=== PATIENT | male | born 1970 | race Caucasian/White ===

== ENCOUNTER 2021-03-23 11:35 | Inpatient (IN) | payer BC, SELFPAY ==
[~2021-03-23] VITALS: Ht 177.8 cm; Wt 110.7 kg
[2021-03-23 12:00] VITALS: BP 111/50
[2021-03-23] MEDS ORDERED: ACET-2619 PO (12:26)
[2021-03-23] MEDS ORDERED: IBUP-2213 PO (12:26)
[2021-03-23] MEDS ORDERED: IBUPROFEN 800 MG TAB PO ONE (12:30)
--- NOTE | 2021-03-23 12:33 | NUR ---
PO MEDS GIVE, 02 NC AT 3L ON , EKG, LAB SENT TO TENT
--- NOTE | 2021-03-23 12:40 | NUR ---
BIB C/O SOB COVID + X 4 DAYS SAT 80% R/A, BODY PAIN 06/19, NC 3L ON BY NESSA GEORGE.PMH: DENIES
[2021-03-23 13:04] LABS: BASOPHILS % (AUTO) 0.3 % (0.0-2.0); HEMATOCRIT 44.3 % (36-52); HEMOGLOBIN 15.2 g/dL (12.0-18.0); LYMPHOCYTES # (AUTO) 0.5 K/uL (2.0-11.5); LYMPHOCYTES % (AUTO) 10.5 % (20.5-51.1); MEAN CORPUSCULAR HEMOGLOBIN 30 pg (27-31); MEAN CORPUSCULAR HGB CONC 34 g/dL (33-37); MEAN CORPUSCULAR VOLUME 88.2 fL (80-94); MONOCYTES # (AUTO) 0.2 K/uL (0.8-1.0); MONOCYTES % (AUTO) 3.9 % (1.7-9.3); NEUTROPHILS # (AUTO) 4.4 K/uL (1.8-7.7); NEUTROPHILS % (AUTO) 85.3 % (42.2-75.2); PLATELET COUNT (AUTO) 278 K/uL (140-450); RED BLOOD CELL COUNT(AUTO) 5.03 MIL/uL (4.20-6.10); RED CELL DISTRIBUTION WIDTH 13.4 % (11.6-13.7); WHITE BLOOD COUNT (AUTO) 5.2 K/uL (4.8-10.8)
[2021-03-23 13:26] LABS: ALBUMIN 2.5 g/dL (3.4-5.0); ANION GAP 20.2 (8-16); CARBON DIOXIDE 19.4 mmol/L (21-32); CREATININE 1.4 mg/dL (0.6-1.3); POTASSIUM 3.6 mmol/L (3.5-5.1); TOTAL BILIRUBIN 0.5 mg/dL (0.0-1.0)
--- NOTE | 2021-03-23 17:08 | NUR ---
PT PLACED INTO GOWN AND PUT ON BEHAVIORAL PSYCHOLOGIST
--- NOTE | 2021-03-23 17:08 | NUR ---
PT MOVED FROM TENT TO BED 10B
[2021-03-23] MEDS ORDERED: HYDROcodone/APAP 5/325 MG 1 TAB TAB PO PRN (17:25)
[2021-03-23] MEDS ORDERED: ONDANSETRON 4 MG/2 ML VIAL IVP PRN (17:25)
[2021-03-23] MEDS ORDERED: MAG SULF 2000 MG/WATER PREMIX 50 ML IV PRN (17:25)
[2021-03-23] MEDS ORDERED: POTASSIUM CHLORIDE 10 MEQ TABER PO PRN (17:25)
[2021-03-23] MEDS ORDERED: MAGNESIUM OXIDE 400 MG TAB PO PRN (17:25)
[2021-03-23] MEDS ORDERED: MORPHINE SULFATE 4 MG/ML SYR IVP PRN (17:25)
[2021-03-23] MEDS ORDERED: ZOLPIDEM 5 MG TAB PO PRN (17:25)
--- NOTE | 2021-03-23 17:29 | NUR ---
PT ADMITTED UNDER DR. ANN TO TELE. PT TELE HOLD IN BED 10A
[2021-03-23] MEDS ORDERED: AZITHROMYCIN 250 MG TAB PO SCH (18:00)
--- NOTE | 2021-03-23 18:06 | NUR ---
PT MOVED FROM 10A TO 10B
--- NOTE | 2021-03-23 18:14 | NUR ---
Patient appears to be resting comfortably in bed. Vital Signs within normal limits. Respirations even and unlabored.
[2021-03-23] MEDS ORDERED: cefTRIAXone 1,000 MG VIAL ONE (18:21)
[2021-03-23] MEDS: NACL 0.9% 1,000 ML IV SCH (18:24)
--- NOTE | 2021-03-23 19:38 | NUR ---
Pt report given to NESSA CASTORENA. Transfer of care at this time.
--- NOTE | 2021-03-23 19:52 | NUR ---
ASSISTED PATIENT TO THE COMMODE-- PATIENT TOLERATING WELL
--- NOTE | 2021-03-23 20:28 | NUR ---
SWITCHED PATIENT TO SIMPLE FACEMASK ON 10L-- TOLERATING WELL AND PATIENT PREFERS IT. WILL MONITOR PATIENT
--- NOTE | 2021-03-23 20:30 | NUR ---
patient tolerating face mask well saturation up to 93%
--- NOTE | 2021-03-23 20:54 | NUR ---
RT at bedside for patient
--- NOTE | 2021-03-23 22:33 | NUR ---
ASSISTED PATIENT TO THE COMMODE-- PATIENT TOLERATING WELL
--- NOTE | 2021-03-23 23:06 | NUR ---
patient non-compliant with face mask. patient repeatedly taking face mask off desaturating down to 55%. patient turning pale and lips looking slightly cyanotic. patient skin cool. Called RT.
[2021-03-24] VITALS (14 sets, daily range): BP systolic 94–133; BP diastolic 60–86
--- NOTE | 2021-03-24 02:41 | NUR ---
ASSISTED PATIENT TO THE COMMODE-- PATIENT TOLERATING WELL
--- NOTE | 2021-03-24 02:54 | NUR ---
RT at bedside for patient
[2021-03-24] MEDS: LORazepam 1 MG TAB PO PRN ×2 (03:04→09:34)
--- NOTE | 2021-03-24 03:57 | NUR ---
patient HR continuously at 125s, RR 45 and patient reports feeling exhausted and fatigued. patient starting to feel agitated even with medications for agitation.
--- NOTE | 2021-03-24 04:02 | NUR ---
Assisted patient to the commode-- patient increasingly becoming fatigued with increased WOB and desaturating to 85s.
[2021-03-24] MEDS: ACETAMINOPHEN 325 MG TAB PO PRN ×2 (04:10→17:37)
[2021-03-24] MEDS: NACL 0.9% 1,000 ML IV SCH ×3 (06:34→19:30)
--- NOTE | 2021-03-24 07:15 | NUR ---
Pt report given to Vicki SZYMANSKI. Transfer of care at this time.
--- NOTE | 2021-03-24 07:20 | NUR ---
REPORT RECEIVED FROM NESSA CASTORENA FOR TRANSFER OF CARE
--- NOTE | 2021-03-24 07:20 | NUR ---
Ivon dubose in [facility] - 03/24/21 at 4196 by ZORAN REPORT RECEIVED FROM NESSA CASTORENA FOR TRANSFER OF CARE
--- NOTE | 2021-03-24 08:12 | NUR ---
Patient will be admitted to care of DR. ANN. Admited to TELE. Will go to room 106B. Belongings list completed. Report to NESSA RIVERO. PT TAKEN VIA NATHAN WITH [facility] EMT
[2021-03-24] MEDS ORDERED: ENOXAPARIN 40 MG/0.4 ML SYR SUBQ SCH (09:00)
--- NOTE | 2021-03-24 09:00 | NUR ---
PATIENT HAS BEEN SCREENED AND CATEGORIZED MODERATE NUTRITION RISK. PATIENT WILL BE SEEN WITHIN 3-5 DAYS OF ADMISSION. [address] Addendum: 03/24/21 at [address] PATIENT HAS BEEN CATEGORIZED HIGH NUTRITION RISK D/T CONSULT RECEIVED FOR TUBE FEEDING. PATIENT WILL BE SEEN WITHIN 1-2 DAYS OF ADMISSION. 03/24/21-03/25/[address]
--- NOTE | 2021-03-24 09:02 | NUR ---
SPOKE TO DR. ANN, PT TO TRANSFER TO ICU. PT IS UNSTABLE ON BIPAP.
--- NOTE | 2021-03-24 09:05 | NUR ---
PT WAS TRANSFERRED FROM ER TO THE FLOORS. PLACED PATIENT ON BIPAP, PT IS SOMEWHAT STABLE SPO2 95-96% ON 100% FIO2. RR BETWEEN 35-40 BPM, PT SEEMS TO BE WORKING VERY AND COMPLAINS OF SOB WITH BIPAP ON. PT WAS TOLD TO LEAVE MASK BUT PT DOES REMOVE THE MASK AT TIMES. SATS STABLE OF NOW, WILL CONTINUE TO MONITOR.
[2021-03-24] MEDS: DOCUSATE SODIUM 100 MG GELCAP PO SCH (09:45)
[2021-03-24] MEDS ORDERED: DEXMEDETOMIDINE HCL 400 MCG in NACL 0.9% 96 ML IV PRN (09:55)
--- NOTE | 2021-03-24 10:15 | NUR ---
RECEIVED REPORT FROM JOSEFA SZYMANSKI VIA TELEPHONE FOR CONTINUITY OF CARE.
--- NOTE | 2021-03-24 10:30 | NUR ---
PT ARRIVED TO ICU BED 3. PT IS [id number]. PT IS SUPINE IN THE BED, ON BIPAP. LABORED BREATHING. PT IS ANXIOUS AND DISTRESSED REGARDING HIS INCREASED RESPIRATORY EFFORT. SINUS TACHY ON THE MONITOR. LFA IV 20G PATENT INTACT. PT IS CONTINENT OF BOWEL AND BLADDER. CALL LIGHT WITHIN REACH. SAFETY PRECAUTIONS MET. DROPLET PRECAUTIONS IN PLACE. INITIAL ASSESSMENT COMPLETED. WILL CONTINUE TO MONITOR.
--- NOTE | 2021-03-24 10:30 | NUR ---
TRANSFERED TO ICU BED 4. PATIENT RR 38-40, ANXIOUS, REMOVES MASK AND DESATS TO 86%. MEDICATED WITH ATIVAN ORDERED.
--- NOTE | 2021-03-24 10:38 | NUR ---
PT BREATHING IS LABORED, INCREASINGLY ANXIOUS. PT REQUESTED TO SPEAK TO DR REGARDING OPTIONS OTHER THAN BIPAP. CALLED ER DOCTOR LISSA.
--- NOTE | 2021-03-24 10:44 | NUR ---
ER DR ALCARAZ TALKED TO PATIENT ABOUT OPTIONS OTHER THAN BIPAP. PT EDUCATED ON OXYGENATION, BIPAP, AND INTUBATION. PT CONSENTED TO BE INTUBATED.
[2021-03-24] MEDS ORDERED: PROPOFOL 1000 MG/100 ML PREMIX 100 ML IV ONE (10:50)
--- NOTE | 2021-03-24 10:51 | NUR ---
PT RECEIVED 20MG OF ETOMIDATE FOLLOWED BY 100MG OF SUCCINYLCHOLINE PER DR ALCARAZ ORDER.
--- NOTE | 2021-03-24 10:52 | NUR ---
PT INTUBATED AT [address] ALCARAZ. ORDERED PROPOFOL TITRATION FOR SEDATION.
[2021-03-24] MEDS: PROPOFOL 1000 MG/100 ML PREMIX 100 ML IV PRN ×4 (11:00→21:10)
--- NOTE | 2021-03-24 11:02 | NUR ---
DC PLANNING: CM SPOKE WITH LUCI CM FOR [facility]. CLINICAL REVIEW GIVEN TO HER VERBALLY, ENDORSED THAT THE PATIENT IS ON A NRB AT 13 L, COVID RAPID NEGATIVE, PCR PENDING. O2 SATS ON RA 80% ON ADMISSION, PATIENT UNVACCINATED. CM WILL FOLLOW FOR NEEDS. Addendum: 03/24/21 at 1412 by Amarilis Norton RN DC PLANING: TRANSFERRED PATIENT TO ICU, INTUBATED SEDATED, ON FENTANYL AND PROPOFOL DRIP. CM TO FOLLOW Addendum: 03/31/21 at 1040 by Mayra Dubon CM DC PLANNING: CLINICAL REVIEW GIVEN TO JAIME AT [facility]. CM WILL FOLLOW. Addendum: 04/12/21 at 1416 by Mayra Dubon CM DC PLANNING: CM LEFT VM FOR THE PATIENTS POINT OF CONTACT, SUSANA VILLASENOR ASKING TO DISCUSS PLAN FOR THE PATIENTS CARE. PER LUCI AT [facility] THE ATTENDING MD STATES HE WILL WRITE AN ORDER FOR [facility] REFERRAL. PATIENT ON APRV VENT MODE AT 100% FIO2, PLAN TO ATTEMPT PRONING IF PATIENT CAN TOLERATE. CM WILL FOLLOW. Addendum: 04/12/21 at 1644 by Mayra Dubon DC PLANNING: CM SPOKE AT LENGTH WITH THE PATIENTS SUSANA TO DISCUSS [facility] TRANSFER. SUSANA IN AGREEMENT WITH TRANSFER, CM CONFIRMED WITH [facility] THAT THEY CAN TRANSPORT PATIENT ON APRV MODE AND 100% FIO2. PACKET FAXED TO STEPHANIE [facility] TRANSFER PUT ON HOLD FOR TODAY. CM WILL FOLLOW.
--- NOTE | 2021-03-24 11:20 | NUR ---
INSERTED NGT TO L NARE PER DR ROLLE ORDER.
--- NOTE | 2021-03-24 11:25 | NUR ---
XRAY AT BEDSIDE
[2021-03-24] MEDS ORDERED: NOREPINEPHRINE 4 MG in DEXTROSE 5% 250 ML IV PRN (11:40)
[2021-03-24] MEDS ORDERED: fentaNYL citrate 1 MG in NACL 0.9% 80 ML IV PRN (11:40)
--- NOTE | 2021-03-24 11:40 | NUR ---
SEEN AND EXAMINED BY DR ROLLE. ORDERS CARRIED OUT.
[2021-03-24] MEDS ORDERED: baricitinib COMM. ORDER 1 EA MISC MC PRN (11:45)
[2021-03-24] MEDS ORDERED: remdesivir COMMUNICATION ORDER 1 EA MISC MC PRN (11:45)
[2021-03-24] MEDS ORDERED: DEXTROSE 50% 50 ML SYR IVP PRN (11:45)
[2021-03-24] MEDS ORDERED: remdesivir CLINICAL MONITORING 1 EA MISC MC PRN (11:55)
[2021-03-24] MEDS: DEXAMETHASONE 10 MG/ML VIAL IVP SCH (12:00)
[2021-03-24 12:27] LABS: BASOPHILS % (AUTO) 0.1 % (0.0-2.0); HEMATOCRIT 40.1 % (36-52); HEMOGLOBIN 13.8 g/dL (12.0-18.0); LYMPHOCYTES # (AUTO) 0.4 K/uL (2.0-11.5); LYMPHOCYTES % (AUTO) 5.9 % (20.5-51.1); MEAN CORPUSCULAR HEMOGLOBIN 30 pg (27-31); MEAN CORPUSCULAR HGB CONC 34 g/dL (33-37); MEAN CORPUSCULAR VOLUME 88.6 fL (80-94); MONOCYTES # (AUTO) 0.2 K/uL (0.8-1.0); MONOCYTES % (AUTO) 3.7 % (1.7-9.3); NEUTROPHILS # (AUTO) 5.8 K/uL (1.8-7.7); NEUTROPHILS % (AUTO) 90.3 % (42.2-75.2); PLATELET COUNT (AUTO) 314 K/uL (140-450); RED BLOOD CELL COUNT(AUTO) 4.53 MIL/uL (4.20-6.10); RED CELL DISTRIBUTION WIDTH 13.7 % (11.6-13.7); WHITE BLOOD COUNT (AUTO) 6.4 K/uL (4.8-10.8)
[2021-03-24] MEDS: BLOOD GLUCOSE MONITORING 1 DEV DEV FS SCH ×2 (12:30→18:00)
[2021-03-24] MEDS: BARICITINIB 2 MG TAB PO SCH (12:30)
[2021-03-24] MEDS ORDERED: REMDESIVIR. 200 MG in NACL 0.9% 100 ML IV SCH (13:00)
[2021-03-24] MEDS: fentaNYL citrate - 50mL vial 2.5 MG in NACL 0.9% 200 ML IV PRN (13:35)
[2021-03-24] MEDS: INSULIN LISPRO SLIDING SCALE 100 UNITS/ML VIAL SUBQ PRN ×2 (13:45→19:18)
--- NOTE | 2021-03-24 14:03 | NUR ---
POTENTIAL COVID RELATED SKIN FAILURE DUE TO TISSUE LESS TOLERATE TO PRESSURE, SHEARING AND POSSIBLE ASSOCIATED WITH MICROVASCULAR INJURY AND HYPOXIA CONTINUE TO FOLLOW SKIN CARE AND PRESSURE INJURY PREVENTION INTERVENTIONS. -TURN AND REPOSITION PATIENT Q 2H -ASSESS AND MONITOR SKIN CONDITION DURING POSITION CHANGE -OFFLOAD BILATERAL HEELS BY PLACING PILLOWS UNDER CALVES AT ALL TIMES, UNLESS OTHERWISE CONTRAINDICATED -PRESSURE REDISTRIBUTION SURFACE AND OFFLOADING SACRALCOCCYX -KEEP SKIN CLEAN AND DRY AT ALL TIMES.
--- NOTE | 2021-03-24 14:15 | NUR ---
03/24/21 RD INITIAL ASSESSMENT COMPLETED PLEASE REFER TO NUTRITION ASSESSMENT UNDER CARE ACTIVITY FOR ESTIMATED NUTRITIONAL NEEDS. 1. RECOMMEND VITAL AF 1.2 @ 40 ML/HR -START AT 10 ML/HR AND INCREASE BY 10 ML Q4H TOLERATED -WITH PROPOFOL @ 31ML/HR, PT WILL RECEIVE 1970 KCAL AND 72 GM PROTEIN, MEETING ESTIMATED NUTRITIONAL GOALS 2. IF PROPOFOL RATE IS < 10 ML/HR, INCREASE THE GOAL RATE TO 60 ML/HR WITH FWF [address] TO FOLLOW-UP 2-3 DAYS, HIGH RISK GAYATHRI ARAYA RD
--- NOTE | 2021-03-24 15:00 | NUR ---
F/C INSERTED PER MD ORDER. DRAINING TO GRAVITY.
--- NOTE | 2021-03-24 18:30 | NUR ---
PT CLEANED AND REPOSITIONED, TOLERATED POORLY, SPO2 85%.
--- NOTE | 2021-03-24 19:05 | NUR ---
ENDORSED BEDSIDE REPORT TO SULY SZYMANSKI FOR CONTINUITY OF CARE.
--- NOTE | 2021-03-24 19:15 | NUR ---
ASSUMED CARE OF PT.INITIAL ASSESSMENT COMPLETED.PT SEDATED.SR NOTED ON MONITOR.PT ORALLY INTUBATED AC PC FIO2 100% RATE 22 PEEP 8.W/PERIPHERAL IV TO LT AC G20 INFUSING PROPOFOL DRIP 45MCG/KG/MIN DRY WT 106KG AND FENTANYL DRIP 1MCG/KG/HR , LT F/A G 20 INFUSING ORDERED IVF.W/NGT TO LT NARES INTACT.WILL START NGT FEEDING.ABDOMEN SOFT.W/ARMENTA CATHETER TO BSD DRAINING SMALL AMT OF YELLOW URINE.W/GENERALIZED WEAKNESS.W/BILATERAL SOFT WRIST RESTRAINTS ALSO NOTED; NO INJURIES NOTED.FLACC 0
--- NOTE | 2021-03-24 21:00 | NUR ---
PICC LINE TO GIL INSERTED BY SIVA SZYMANSKI; OK TO USE.
[2021-03-25] VITALS (27 sets, daily range): BP systolic 92–113; BP diastolic 58–69
[2021-03-25] MEDS: BLOOD GLUCOSE MONITORING 1 DEV DEV FS SCH ×4 (00:08→17:38)
[2021-03-25] MEDS: INSULIN LISPRO SLIDING SCALE 100 UNITS/ML VIAL SUBQ PRN ×2 (00:09→05:34)
--- NOTE | 2021-03-25 00:25 | NUR ---
02SAT 70'S; RT ROSALINA AND COCO AT BEDSIDE; ORDERED STAT ABG; PT ON 100% FIO2/VENT
--- NOTE | 2021-03-25 00:51 | NUR ---
ABG RESULT REPORTED TO DR ROLLE BY RT ROMANO
[2021-03-25] MEDS: PROPOFOL 1000 MG/100 ML PREMIX 100 ML IV PRN ×4 (01:35→22:44)
--- NOTE | 2021-03-25 02:00 | NUR ---
PROPOFOL AND FENTANYL DRIP CHANGED TO RASS -3 PER SARIAH; ABG ORDERED.RT AT BEDSIDE FLACC 0
[2021-03-25 05:19] LABS: BASOPHILS % (AUTO) 0.1 % (0.0-2.0); HEMATOCRIT 37.9 % (36-52); HEMOGLOBIN 12.6 g/dL (12.0-18.0); LYMPHOCYTES # (AUTO) 0.6 K/uL (2.0-11.5); MEAN CORPUSCULAR HEMOGLOBIN 30 pg (27-31); MEAN CORPUSCULAR HGB CONC 33 g/dL (33-37); MEAN CORPUSCULAR VOLUME 89.9 fL (80-94); MONOCYTES # (AUTO) 0.3 K/uL (0.8-1.0); MONOCYTES % (AUTO) 5.9 % (1.7-9.3); NEUTROPHILS # (AUTO) 3.7 K/uL (1.8-7.7); PLATELET COUNT (AUTO) 204 K/uL (140-450); RED BLOOD CELL COUNT(AUTO) 4.22 MIL/uL (4.20-6.10); RED CELL DISTRIBUTION WIDTH 13.5 % (11.6-13.7); WHITE BLOOD COUNT (AUTO) 4.6 K/uL (4.8-10.8)
--- NOTE | 2021-03-25 06:00 | NUR ---
PHONE CALL TO DR LAM, WATER TAXI DRIVER, NOTIFIED RE; TROPONIN 0.521; MD UPDATED ON PTS PRESENT CONDITION; QUESTIONS ANSWERED.NEW ORDERS RECEIVED.CARRIED OUT
[2021-03-25 06:07] LABS: ALBUMIN 1.8 g/dL (3.4-5.0); ANION GAP 16.8 (8-16); CARBON DIOXIDE 22.3 mmol/L (21-32); CREATININE 1.5 mg/dL (0.6-1.3); POTASSIUM 4.1 mmol/L (3.5-5.1); TOTAL BILIRUBIN 0.3 mg/dL (0.0-1.0)
[2021-03-25] MEDS ORDERED: ENOXAPARIN 120 MG/0.8 ML SYR SUBQ SCH (07:00)
--- NOTE | 2021-03-25 07:30 | NUR ---
RECEIVED REPORT FROM ROCÍO FOR CONTINUE CARE PT IS IN ISOLATION . IN BED ETT UP 30 DEGREE ETT TO VENT AC PRVC 100% FIO2 TV 500 PEEP 12 , IV HAS PICC LINE ONRT UPPER ARM. INFUSING PROPOFOL AT 35MCG/KG/MIN FENTANYL1 MCG/KG/HR IV FLUID NS AT 80 ML/HR.NG T FEEDING IN PROGRESS, ARMENTA CATH DRAIN CLEAR BRIANNA URINE.
--- NOTE | 2021-03-25 08:45 | NUR ---
REPOSITION SUCTION AND ORAL CARE WITH VAP KIT , SCHEDULE MED GIVEN.
[2021-03-25] MEDS ORDERED: LOVENOX 1MG/KG Q12H SUBQ SCH (09:00)
[2021-03-25] MEDS: PANTOPRAZOLE 40 MG INJ VIAL IVP SCH (09:15)
[2021-03-25] MEDS: DEXAMETHASONE 10 MG/ML VIAL IVP SCH (09:15)
[2021-03-25] MEDS: DOCUSATE SODIUM 100 MG GELCAP PO SCH (09:18)
[2021-03-25] MEDS: BARICITINIB 2 MG TAB PO SCH (09:21)
--- NOTE | 2021-03-25 10:08 | NUR ---
DIGITAL TECHNICIAN CALLED TO BEDSIDE PATIENT PRESENTING WITH DESCENDING SATURATION AND CHANGING Vte CHANGED MODE TO PRVC; INCREASED Vt (FLOW) TO 550ml (GREATER THAN 7ml/kg)
[2021-03-25] MEDS: REMDESIVIR. 100 MG in NACL 0.9% 100 ML IV SCH (13:00)
--- NOTE | 2021-03-25 14:20 | NUR ---
STABLE GOOD CHEST RISE ENDOTRACHEAL SUCTION FOR SMALL THIN YELLOW SECRETIONS AIRWAY PATENT DR. MJ HERNÁNDEZ ROUNDING EARLIER CHANGED PEEP TO [id number] PER NAHEED/RN
--- NOTE | 2021-03-25 14:20 | NUR ---
PATIENT PLACED IN PRONE POSITION TOLERATED WELL WITHOUT COMPLICATIONS NOTED
--- NOTE | 2021-03-25 19:05 | NUR ---
REPORT GIVE TO SULY FOR CONTINUE CARE.
--- NOTE | 2021-03-25 19:30 | NUR ---
ASSUMED CARE OF PT.INITIAL ASSESSMENT COMPLETED.PT SEDATED.RASS -3.SR NOTED ON MONITOR.PT ORALLY INTUBATED AC PRVC FIO2 100% TV 550 RATE 22 PEEP 14.W/GIL PICC LINE FLUSHED,INTACT,GOOD BLOOD RETURN TO BOTH PORTS,INFUSING PROPOFOL DRIP 35MCG/KG/MIN DRY WT 106KG AND FENTANYL DRIP 1.5 MCG/KG/HR AND NS AT 80ML/HR.W/NGT TO LT NARES INTACT.TUBE FEEDING ON HOLD FOR NOW.W/ARMENTA CATHETER TO BSD DRAINING SMALL AMT OF YELLOW URINE.W/GENERALIZED WEAKNESS.W/BILATERAL SOFT WRIST RESTRAINTS ALSO NOTED; NO INJURIES NOTED.FLACC 0.PT ON PRONE POSITION AT THIS TIME.
--- NOTE | 2021-03-25 22:13 | NUR ---
PT STILL ON PRONE POSITION.NO DISTRESS NOTED AT THIS TIME.WILL CONTINUE TO CLOSELY MONITOR PT
[2021-03-25] MEDS: NACL 0.9% 1,000 ML IV SCH (22:43)
[2021-03-26] VITALS (24 sets, daily range): BP systolic 100–134; BP diastolic 61–79
--- NOTE | 2021-03-26 02:30 | NUR ---
PTS POSITION CHANGED FROM PRONE TO SUPINE; RT AT BEDSIDE.SECRETIONS SUCTIONED.[id number]% AT THIS TIME. NGT FEEDING VITAL AF RESUMED ORDERED.FLACC 0
[2021-03-26] MEDS: PROPOFOL 1000 MG/100 ML PREMIX 100 ML IV PRN ×5 (02:45→19:30)
--- NOTE | 2021-03-26 02:45 | NUR ---
BM LARGE AMT OF DARK GREENISH LIQUID STOOL NOTED; PT CLEANED; PT REPOSITIONED; LARGE LIQUID BM NOTED AGAIN; RECTAL TUBE INSERTED ORDERED
--- NOTE | 2021-03-26 04:00 | NUR ---
ORAL CARE DONE.AFEBRILE.FLACC 0.REPOSITIONED
[2021-03-26] MEDS: fentaNYL citrate - 50mL vial 2.5 MG in NACL 0.9% 200 ML IV PRN ×2 (04:30→20:19)
[2021-03-26 05:24] LABS: BASOPHILS % (AUTO) 0.1 % (0.0-2.0); HEMATOCRIT 37.5 % (36-52); HEMOGLOBIN 12.7 g/dL (12.0-18.0); LYMPHOCYTES # (AUTO) 0.7 K/uL (2.0-11.5); LYMPHOCYTES % (AUTO) 9.6 % (20.5-51.1); MEAN CORPUSCULAR HEMOGLOBIN 30 pg (27-31); MEAN CORPUSCULAR HGB CONC 34 g/dL (33-37); MEAN CORPUSCULAR VOLUME 89.9 fL (80-94); MONOCYTES # (AUTO) 0.6 K/uL (0.8-1.0); MONOCYTES % (AUTO) 7.9 % (1.7-9.3); NEUTROPHILS % (AUTO) 82.4 % (42.2-75.2); PLATELET COUNT (AUTO) 222 K/uL (140-450); RED BLOOD CELL COUNT(AUTO) 4.17 MIL/uL (4.20-6.10); RED CELL DISTRIBUTION WIDTH 13.9 % (11.6-13.7); WHITE BLOOD COUNT (AUTO) 7.3 K/uL (4.8-10.8)
[2021-03-26 05:53] LABS: ALBUMIN 1.8 g/dL (3.4-5.0); ANION GAP 13.6 (8-16); CARBON DIOXIDE 24.7 mmol/L (21-32); CREATININE 1.2 mg/dL (0.6-1.3); POTASSIUM 4.3 mmol/L (3.5-5.1); TOTAL BILIRUBIN 0.2 mg/dL (0.0-1.0)
[2021-03-26] MEDS: BLOOD GLUCOSE MONITORING 1 DEV DEV FS SCH ×5 (05:54→23:54)
[2021-03-26] MEDS: INSULIN LISPRO SLIDING SCALE 100 UNITS/ML VIAL SUBQ PRN ×5 (05:55→23:55)
--- NOTE | 2021-03-26 07:05 | NUR ---
RECEIVED BEDSIDE REPORT FROM SULY SZYMANSKI FOR CONTINUITY OF CARE. PT SEDATED, RASS -3. SR ON MONITOR. ETT TO VENT AC PRVC FIO2 100% TV 550 RATE 22 PEEP 14. GIL PICC LINE PATENT INTACT, INFUSING PROPOFOL 35MCG/KG/MIN, FENTANYL 1.5 MCG/KG/HR AND NS AT 80ML/HR. NGT TO L NARE INTACT TUBE FEEDING VITAL AF 1.2 40 ML/HR FREE WATER FLUSH 200CC Q4H. F/C IN PLACE, DRAINING TO GRAVITY. RECTAL TUBE IN PLACE, DRAINING TO GRAVITY. GENERALIZED WEAKNESS. BILATERAL SOFT WRIST RESTRAINTS, NO INJURIES NOTED. FLACC 0. PT ON SUPINE POSITION AT THIS TIME. SKIN INTACT. ALL SAFETY PRECAUTIONS MET. DROPLET PRECAUTIONS IN PLACE FOR DX COVID POS. CALL LIGHT WITHIN REACH. INITIAL ASSESSMENT COMPLETED, WILL CONTINUE TO MONITOR.
[2021-03-26] MEDS: NACL 0.9% 1,000 ML IV SCH ×2 (07:55→20:28)
[2021-03-26] MEDS: DEXAMETHASONE 10 MG/ML VIAL IVP SCH (08:50)
[2021-03-26] MEDS: PANTOPRAZOLE 40 MG INJ VIAL IVP SCH (08:50)
[2021-03-26] MEDS: DOCUSATE 100 MG/10 ML UDC GT SCH (08:50)
[2021-03-26] MEDS: BARICITINIB 2 MG TAB PO SCH (08:50)
[2021-03-26] MEDS: ENOXAPARIN 40 MG/0.4 ML SYR SUBQ SCH (08:51)
--- NOTE | 2021-03-26 11:30 | NUR ---
SEEN AND EXAMINED BY DR DOE. NO NEW ORDERS AT THIS TIME. WILL CONTINUE TO MONITOR.
--- NOTE | 2021-03-26 11:58 | NUR ---
(03/26/21) RD FOLLOW UP COMPLETED PLEASE REFER TO NUTRITION PROGRESS NOTE UNDER CARE ACTIVITY FOR ESTIMATED NUTRITION NEEDS. RD RECOMMENDATIONS: 1. RECOMMEND D/C VITAL AF 1.2. 2. RECOMMEND INITIATING GLUCERN 1.2 AT 60 ML/HR. THIS WILL PROVIDE 1440 ML TOTAL VOLUME, 1728 KCAL, AND 86 GM PROTEIN TO MEET 92% EST KCAL NEEDS AND 76% UPPER-END EST PROTEIN NEEDS. 3. IF GLUCERNA 1.2 IS NOT INITIATED, CONSIDER INCREASING GOAL RATE OF VITAL AF 1.2 TO 55 ML/HR TO PROVIDE 1320 ML TOTAL VOLUME, 1584 KCAL, 99 GM PROTEIN TO MEET 84% EST KCAL NEEDS AND 88% EST PROTEIN NEEDS; ADEQUATE. 4. RD TO FOLLOW-UP 2-3 DAYS, HIGH RISK MARSHA PERDOMO MS, RDN
--- NOTE | 2021-03-26 12:00 | NUR ---
BSG 266, COVERED WITH 6 UNITS OF HUMALOG. WILL CONTINUE TO MONITOR.
[2021-03-26] MEDS: REMDESIVIR. 100 MG in NACL 0.9% 100 ML IV SCH (12:13)
--- NOTE | 2021-03-26 14:00 | NUR ---
AT BEDSIDE, UPDATED REGARDING PATIENT'S CONDITION.
--- NOTE | 2021-03-26 14:45 | NUR ---
PT REPOSITIONED TO PRONE POSITION WITH ASSIST FROM VANNESA GASPAR AND MARILEE SZYMANSKI. TUBE FEEDING HELD WHILE PRONE.
--- NOTE | 2021-03-26 18:00 | NUR ---
BSG 214, COVERED WITH 4 UNITS OF HUMALOG. WILL CONTINUE TO MONITOR.
--- NOTE | 2021-03-26 19:00 | NUR ---
SEEN AND EXAMINED BY DR ANN. NO NEW ORDERS AT THIS TIME.
--- NOTE | 2021-03-26 19:30 | NUR ---
ENDORSED BEDSIDE REPORT TO SULY SZYMANSKI FOR CONTINUITY OF CARE.
--- NOTE | 2021-03-26 19:50 | NUR ---
RECEIVED PT ON PRONE POSITION.INITIAL ASSESSMENT COMPLETED.PT SEDATED.RASS -3.SR NOTED ON MONITOR.ETT TO VENT AC PRVC FIO2 80% TV 550 RATE 22 PEEP 14.W/GIL PICC LINE FLUSHED,INTACT,GOOD BLOOD RETURN TO BOTH PORTS,INFUSING PROPOFOL DRIP 35MCG/KG/MIN DRY WT 106KG AND FENTANYL DRIP 1.5 MCG/KG/HR AND NS AT 80ML/HR.W/NGT TO LT NARES INTACT,CLAMPED,TUBE FEEDING ON HOLD FOR NOW.W/ARMENTA CATHETER TO BSD DRAINING SMALL AMT OF YELLOW URINE.W/RECTAL TUBE ALREADY IN PLACE.W/GENERALIZED WEAKNESS.W/BILATERAL SOFT WRIST RESTRAINTS ALSO NOTED; NO INJURIES NOTED.FLACC 0.
--- NOTE | 2021-03-26 22:00 | NUR ---
PT STILL ON PRONE POSITION.NOT IN DISTRESS.FLACC 0
[2021-03-27] VITALS (30 sets, daily range): BP systolic 96–151; BP diastolic 62–94
--- NOTE | 2021-03-27 | NUR ---
ORAL CARE DONE WITH VAP KIT.
--- NOTE | 2021-03-27 | NUR ---
PTS CONDITION REMAINS UNCHANGED.STILL ON PRONE POSITION.NO DISTRESS NOTED
[2021-03-27] MEDS: PROPOFOL 1000 MG/100 ML PREMIX 100 ML IV PRN ×6 (00:28→21:22)
--- NOTE | 2021-03-27 03:00 | NUR ---
PT REPOSITIONED BACK TO SUPINE POSITION FROM PRONE.RT AT BEDSIDE. NGT FEEDING RESTARTED, GLUCERNA 1.2 ORDERED
--- NOTE | 2021-03-27 05:00 | NUR ---
PT O2 SAT GOING DOWN, RT AT BEDSIDE.CXR ORDERED
[2021-03-27 05:56] LABS: BASOPHILS % (AUTO) 0.1 % (0.0-2.0); HEMATOCRIT 38.9 % (36-52); LYMPHOCYTES # (AUTO) 0.8 K/uL (2.0-11.5); MEAN CORPUSCULAR HEMOGLOBIN 30 pg (27-31); MEAN CORPUSCULAR HGB CONC 33 g/dL (33-37); MONOCYTES # (AUTO) 0.7 K/uL (0.8-1.0); MONOCYTES % (AUTO) 5.7 % (1.7-9.3); NEUTROPHILS # (AUTO) 10.4 K/uL (1.8-7.7); PLATELET COUNT (AUTO) 170 K/uL (140-450); RED BLOOD CELL COUNT(AUTO) 4.32 MIL/uL (4.20-6.10); RED CELL DISTRIBUTION WIDTH 14.1 % (11.6-13.7); WHITE BLOOD COUNT (AUTO) 11.9 K/uL (4.8-10.8)
[2021-03-27] MEDS: BLOOD GLUCOSE MONITORING 1 DEV DEV FS SCH ×3 (06:00→17:29)
--- NOTE | 2021-03-27 06:32 | NUR ---
02SAT 95 % AT THIS TIME; PT ON FIO2 85% AC PRVC TV550 RATE 22 PEEP 14.WILL CONTINUE TO CLOSELY MONITOR PT.
[2021-03-27 07:07] LABS: LYMPHOCYTES % (AUTO) 6.6 % (20.5-51.1); NEUTROPHILS % (AUTO) 87.6 % (42.2-75.2)
[2021-03-27 07:08] LABS: ALBUMIN 1.8 g/dL (3.4-5.0); ANION GAP 17.4 (8-16); CARBON DIOXIDE 22.8 mmol/L (21-32); POTASSIUM 4.2 mmol/L (3.5-5.1); TOTAL BILIRUBIN 0.3 mg/dL (0.0-1.0)
--- NOTE | 2021-03-27 07:10 | NUR ---
RECEIVED BEDSIDE REPORT FROM SULY SZYMANSKI FOR CONTINUITY OF CARE. PT SEDATED, RASS -3. SR ON MONITOR. ETT TO VENT AC PRVC FIO2 100% TV 550 RATE 22 PEEP 14. GIL PICC LINE PATENT INTACT, INFUSING PROPOFOL 35MCG/KG/MIN, FENTANYL 1.5 MCG/KG/HR AND NS AT 80ML/HR. NGT TO L NARE INTACT TUBE FEEDING GLUCERNA 40 ML/HR FREE WATER FLUSH 200CC Q4H. F/C IN PLACE, DRAINING TO GRAVITY. RECTAL TUBE IN PLACE, DRAINING TO GRAVITY. GENERALIZED WEAKNESS. BILATERAL SOFT WRIST RESTRAINTS, NO INJURIES NOTED. FLACC 0. PT ON SUPINE POSITION AT THIS TIME. SKIN INTACT. ALL SAFETY PRECAUTIONS MET. DROPLET PRECAUTIONS IN PLACE FOR DX COVID POS. CALL LIGHT WITHIN REACH. INITIAL ASSESSMENT COMPLETED, WILL CONTINUE TO MONITOR.
--- NOTE | 2021-03-27 07:23 | NUR ---
RECEIVED ON A baseclick R860 VENTILATOR PLUGGED INTO RED OUTLET TOLERATING WELL WITHOUT ADVERSE REACTIONS NOTED TO AN ENDOTRACHEAL TUBE #8.0 SECURED AT 25cm TEETH/GUM LINE WITH BLUE ETT TAPE AMBU BAG AT BEDSIDE MEDICAL DEVICE SALES CONSULTANT CALLED TO BEDSIDE FOR DESCENDING SATURATION TO 83%-85% REVIEWED B/P 142/88 NO VASOPRESSOR INFUSING VIA IV PER ARDS PROTOCOL INCREASED PEEP TO [id number] CHECKED PROBE SITE MOVED FOR LEFT TO RIGHT EAR MEDICAL DEVICE SALES CONSULTANT TO ORDER AND OBTAIN ABG KINGS AWARE OF INCREASE IN PEEP Addendum: 03/27/21 at 1036 by Miles Camarillo RT LOC IRRITABLE PHYSICAL MOVEMENT SEDATED PROPOFOL 40mcg; FENTANYL 1.5mcg REVIEWED WITH ALETA INCREASED TO 40mcg; ENDOTRACHEAL SUCTION FOR MODERATE RUBEN THICK PALE YELLOW WITH BLOOD TINGE SECRETIONS AIRWAY PATENT
--- NOTE | 2021-03-27 08:00 | NUR ---
TEMPERATURE 101.5 F MEDICATED WITH TYLENOL PER MD ORDER. COOLING MEASURES IN PLACE. WILL CONTINUE TO MONITOR.
--- NOTE | 2021-03-27 08:45 | NUR ---
SEEN AND EXAMINED BY DR DOE. NEW ORDERS CARRIED OUT. WILL CONTINUE TO MONITOR.
[2021-03-27] MEDS: NACL 0.9% 1,000 ML IV SCH ×2 (08:55→10:00)
--- NOTE | 2021-03-27 08:55 | NUR ---
REVIEWED PULMONARY STATUS WITH DR. SARAH BRYANT: DUONEB HHN Q6 QND Q4PRN FOR SOB AND WHEEZE; SPUTUM CULTURE IF NOT COLLECTED RECENTLY
--- NOTE | 2021-03-27 09:10 | NUR ---
RESTING WELL GOOD CHEST RISE AIRWAY PATENT
--- NOTE | 2021-03-27 09:12 | NUR ---
ABG PROCEDURE COMPLETED RIGHT RADIAL NO ADVERSE REACTIONS NOTED
[2021-03-27] MEDS: DEXAMETHASONE 10 MG/ML VIAL IVP SCH (09:15)
[2021-03-27] MEDS: DOCUSATE 100 MG/10 ML UDC GT SCH (09:15)
[2021-03-27] MEDS: BARICITINIB 2 MG TAB PO SCH (09:15)
[2021-03-27] MEDS: PANTOPRAZOLE 40 MG INJ VIAL IVP SCH (09:15)
[2021-03-27] MEDS: ENOXAPARIN 40 MG/0.4 ML SYR SUBQ SCH (09:18)
[2021-03-27] MEDS: ACETAMINOPHEN 325 MG TAB PO PRN ×2 (09:19→23:04)
--- NOTE | 2021-03-27 09:19 | NUR ---
DR. SARAH DOE AWARE OF ABG RESULTS
--- NOTE | 2021-03-27 09:35 | NUR ---
DR. SARAH DOE AT BEDSIDE CHANGED VENTILATOR SETTINGS: APRV P high [id number] P low OFF; T high 7.00 T low 0.50 SATURATION 85%; ABG AFTER 1 HOUR
--- NOTE | 2021-03-27 09:35 | NUR ---
DR DOE AT BEDSIDE, CHANGED VENT SETTINGS TO APRV FIO2 85%. COMMUNICATED WITH RT. NEW ORDERS CARRIED OUT. WILL CONTINUE TO MONITOR.
--- NOTE | 2021-03-27 10:00 | NUR ---
TEMPERATURE 101.2 F. COOLING MEASURES STILL IN PLACE. WILL CONTINUE TO MONITOR.
[2021-03-27] MEDS ORDERED: ALBUTEROL SULFATE/IPRATROPIU 3 ML SOL IH PRN (10:10)
--- NOTE | 2021-03-27 10:44 | NUR ---
TOLERATING NEW VENTILATOR SETTINGS EQUAL CHEST RISE AIRWAY PATENT NOTED
--- NOTE | 2021-03-27 10:50 | NUR ---
ABG PROCEDURE COMPLETED NO ADVERSE REACTIONS NOTED
--- NOTE | 2021-03-27 11:02 | NUR ---
CALLED DR. SARAH DOE AT [facility] [phone] MARS/MOHSEN TO SAMANTHA FUNGD RETURN PHONE NUMBER AND PATIENT INFORMATION GIVEN
--- NOTE | 2021-03-27 11:05 | NUR ---
RETURN CALL FROM DR. SARAH DOE REVIEWED ABG SAMPLE REPORT AND VENTILATOR SETTINGS STATES "THAT'S FINE" TORBO: ABG IN AM 03/28 AT 0808; RN TO TITRATE SEDATION CONTINUOUS IMPROVEMENT ENGINEER TO INFORM VICK/NESSA
--- NOTE | 2021-03-27 11:23 | NUR ---
INFORMED VICK/RN OF DR. SARAH JOSE OF TITRATING SEDATION
--- NOTE | 2021-03-27 11:30 | NUR ---
SPOKE ON TELEPHONE WITH DR DOE REGARDING PT'S CONDITION. ORDERED TO HOLD PRONING FOR TODAY AND WILL REASSESS TOMORROW. ORDERS CARRIED OUT.
[2021-03-27] MEDS: fentaNYL citrate - 50mL vial 2.5 MG in NACL 0.9% 200 ML IV PRN (12:00)
--- NOTE | 2021-03-27 12:00 | NUR ---
TEMPERATURE NOW 98.7 F. WILL CONTINUE TO MONITOR.
[2021-03-27] MEDS: REMDESIVIR. 100 MG in NACL 0.9% 100 ML IV SCH (12:35)
[2021-03-27] MEDS: INSULIN LISPRO SLIDING SCALE 100 UNITS/ML VIAL SUBQ PRN ×2 (12:37→17:30)
[2021-03-27] MEDS: ALBUTEROL SULFATE/IPRATROPIU 3 ML SOL IH SCH ×2 (13:27→19:00)
--- NOTE | 2021-03-27 13:28 | NUR ---
SEDATED RESTING COMFORTABLY EQUAL CHEST RISE AIRWAY PATENT APRV P high [id number] P low OFF; T high 7.00 T low 0.50 FIO2 85%
--- NOTE | 2021-03-27 14:00 | NUR ---
PT SEDATED IN THE BED, RASS -3, FLACC 0, NO ACUTE DISTRESS. WILL CONTINUE TO MONITOR.
--- NOTE | 2021-03-27 16:00 | NUR ---
PT'S OUTSIDE PT'S ROOM, UPDATED REGARDING PT CONDITION. PAGED RT TO EXPLAIN VENT SETTINGS AND RESPIRATORY STATUS.
--- NOTE | 2021-03-27 19:15 | NUR ---
ENDORSED BEDSIDE REPORT TO ABIODUN RN FOR CONTINUITY OF CARE.
--- NOTE | 2021-03-27 19:30 | NUR ---
RECEIVED PATIENT ON BED WITH HOB TO 30 DEGREE; SEDATED RASS-3 WITH CONTINOUS PROPOFOL AND FENTANYL DRIP; ORALLY INTUBATED AND VENTILATED AT 85% FIO2, ON APRV MODE OF VENTILATION. CARDIASCOPE SHOWS ON SINUS TACHY HR 103/MIN NO ARRHYTHMIAS SEEN. IVF IN PROGRESS NORMAL SALINE AT 80 ML/HR VIA PICC LINE ON RIGHT UPPER ARM; INTACT. ABDOMEN IS SOFT AND OBESE; ACTIVE BOWEL SOUNDS. ON CONTINOUS TUBE FEEDING VITAL AF 40 ML/HR VIA OGT; TOLERATED WITH MINIMAL RESIDUAL. WITH ARMENTA CATH IN PLACE TO GRAVITY DRAINAGE BAG DRAINING TO CLOUDY YELLOW URINE OUTPUT; INTACT. WITH RECTAL TUBE IN PLACE DRAINING TO MODERATE AMOUNT OF WATERY BROWN STOOL.
--- NOTE | 2021-03-27 21:30 | NUR ---
FEBRILE 101.2; COOLING MEASURES DONE AND TYLENOL GIVEN.
[2021-03-28] VITALS (30 sets, daily range): BP systolic 109–167; BP diastolic 58–100
[2021-03-28] MEDS: INSULIN LISPRO SLIDING SCALE 100 UNITS/ML VIAL SUBQ PRN ×4 (00:15→18:20)
[2021-03-28 01:42] LABS: APPEARANCE,URINE SL CLOUDY (CLEAR); BILIRUBIN,URINE NEGATIVE (NEGATIVE); BLOOD, URINE 1+ (NEGATIVE); COLOR,URINE YELLOW (YELLOW); LEUKOCYTE ESTERASE ,URINE NEGATIVE (NEGATIVE); NITRITE, URINE NEGATIVE (NEGATIVE); UGLUCOSE TRACE (NEGATIVE)
[2021-03-28] MEDS: ALBUTEROL SULFATE/IPRATROPIU 3 ML SOL IH SCH ×2 (02:42→19:08)
[2021-03-28] MEDS: PROPOFOL 1000 MG/100 ML PREMIX 100 ML IV PRN (02:48)
--- NOTE | 2021-03-28 03:30 | NUR ---
MORNING BED BATH DONE; KEPT CLEAN DRY AND COMFORTABLE.
[2021-03-28] MEDS: fentaNYL citrate - 50mL vial 2.5 MG in NACL 0.9% 200 ML IV PRN ×2 (04:20→20:07)
[2021-03-28 04:26] LABS: WBC,URINE 0-5 /HPF (0-5)
[2021-03-28] MEDS: NACL 0.9% 1,000 ML IV SCH (04:30)
[2021-03-28 05:40] LABS: BASOPHILS % (AUTO) 0.2 % (0.0-2.0); HEMATOCRIT 38.3 % (36-52); HEMOGLOBIN 12.7 g/dL (12.0-18.0); LYMPHOCYTES # (AUTO) 0.7 K/uL (2.0-11.5); LYMPHOCYTES % (AUTO) 6.5 % (20.5-51.1); MEAN CORPUSCULAR HEMOGLOBIN 30 pg (27-31); MEAN CORPUSCULAR HGB CONC 33 g/dL (33-37); MEAN CORPUSCULAR VOLUME 90.6 fL (80-94); MONOCYTES # (AUTO) 0.5 K/uL (0.8-1.0); MONOCYTES % (AUTO) 4.8 % (1.7-9.3); NEUTROPHILS # (AUTO) 9.9 K/uL (1.8-7.7); NEUTROPHILS % (AUTO) 88.5 % (42.2-75.2); PLATELET COUNT (AUTO) 141 K/uL (140-450); RED BLOOD CELL COUNT(AUTO) 4.23 MIL/uL (4.20-6.10); RED CELL DISTRIBUTION WIDTH 14.1 % (11.6-13.7); WHITE BLOOD COUNT (AUTO) 11.2 K/uL (4.8-10.8)
[2021-03-28] MEDS: BLOOD GLUCOSE MONITORING 1 DEV DEV FS SCH ×4 (06:50→18:20)
--- NOTE | 2021-03-28 07:20 | NUR ---
ENDORSED TO AM SHIFT NESSA RODRIGUEZ FOR CONTINUITY OF CARE.
--- NOTE | 2021-03-28 07:30 | NUR ---
RECEIVED REPORT FROM NIGHT RN. PATIENT SEDATED AND RESTING COMFORTABLY.
[2021-03-28 07:48] LABS: ALBUMIN 1.8 g/dL (3.4-5.0); CARBON DIOXIDE 26.8 mmol/L (21-32); POTASSIUM 4.8 mmol/L (3.5-5.1); TOTAL BILIRUBIN 0.3 mg/dL (0.0-1.0)
--- NOTE | 2021-03-28 07:58 | NUR ---
RECEIVED ON A NicheSCAPE R860 VENTILATOR WITH SETTINGS OF Ph [id number] Pl OFF Th 0.70 Tl 0.50 FIO2 85% PLUGGED ONTO RED OUTLET TOLERATING WITHOUT ADVERSE REACTIONS TO AN ENDOTRACHEAL TUBE #8.0 SECURED AT 25cm TEETH/GUM LINE WITH AN ANCHOR FAST CUFF PRESSURE CHECKED NOTED AMBU BAG AT BEDSIDE LOC SEDATED RESPONSIVE TO PHYSICAL STIMULUS EQUAL CHEST RISE ENDOTRACHEAL SUCTION FOR COPIOUS SEMI THICK YELLOW WITH BLOOD TINGE SECRETIONS AIRWAY PATENT
--- NOTE | 2021-03-28 08:30 | NUR ---
PATIENT SEDATED. PROPOFOL AT 30MCG/KG/MIN, FENTANYL 1.5MCH/KG/HR, NS 80ML/HR. RIGHT PICC LINE. PUPILS EQUAL AND REACTIVE. PERIPHERAL PULSES PALPABLE AND STRONG. BILAT UPPER ARMS EDEMATOUS. LEFT EYE EDEMATOUS. HEART SOUNDS REGULAR. SINUS TACHYCARDIA. ANTERIOR/LATERAL LUNG SOUNDS CLEAR DIMINISHED. ETT IN PLACE ON VENT APRV MODE WITH FIO2 AT 85% SAO2 100%. NGT IN PLACE WITH GLUCERNA AT 40CC/HR. ABDOMEN SOFT WITH BOWEL SOUNDS IN ALL QUADRANTS. RECTAL BAG IN PLACE WITH LIQUID BROWN STOOL. ARMENTA IN PLACE WITH DARK BRIANNA URINE.
[2021-03-28] MEDS: PANTOPRAZOLE 40 MG INJ VIAL IVP SCH (08:38)
[2021-03-28] MEDS: DOCUSATE 100 MG/10 ML UDC GT SCH (08:38)
[2021-03-28] MEDS: DEXAMETHASONE 10 MG/ML VIAL IVP SCH (08:38)
--- NOTE | 2021-03-28 09:10 | NUR ---
CALLED DR. SARAH DOE AT [facility] [phone] SANTI TO SAMANTHA DIAZ MD FOR REVIEW OF ABG SAMPLE REPORT PATIENT INFO AND RETURN PHONE NUMBER [email or web address]
--- NOTE | 2021-03-28 09:16 | NUR ---
CALL BACK FROM DR. SARAH DOE REVIEWED ABG SAMPLE REPORT FOREMENTIONED MD STATED THAT PH AND PCO2 IS ACCEPTABLE "PERMISSIVE HYPERCAPNIA" MD TO MAKE OTHER VENTILATOR CHANGES DURING ROUNDS TORBO: WEAN FIO2 TO KEEP SATURATION GREATER 88%
[2021-03-28] MEDS: BARICITINIB 2 MG TAB PO SCH (09:21)
[2021-03-28] MEDS: ENOXAPARIN 40 MG/0.4 ML SYR SUBQ SCH (09:21)
--- NOTE | 2021-03-28 10:00 | NUR ---
FIO2 WEANED TO 75% AND PROPOFOL TO 25MCG.
--- NOTE | 2021-03-28 10:00 | NUR ---
PT. WITH LOW KEN SCALE AT HIGH RISK, CONTINUE TO FOLLOW PRESSURE INJURY PREVENTION INTERVENTIONS. -TURN AND REPOSITION PATIENT Q 2H -ASSESS AND MONITOR SKIN CONDITION DURING POSITION CHANGE -OFFLOAD BILATERAL HEELS BY PLACING PILLOWS UNDER CALVES AT ALL TIMES, UNLESS OTHERWISE CONTRAINDICATED -PRESSURE REDISTRIBUTION SURFACE AND OFFLOADING SACRALCOCCYX -KEEP SKIN CLEAN AND DRY AT ALL TIMES. PLEASE NOTIFIED WOUND CARE NURSE FOR ANY CHANGE OF SKIN CONDITION
--- NOTE | 2021-03-28 10:03 | NUR ---
SEDATED STABLE REMAINS ON APRV MODE EQUAL CHEST RISE GOOD AERATION THROUGHOUT BILATERAL LUNG PENALOZA AIRWAY PATENT SATURATION 100% ON FIO2 OF 85% TITRATED FIO2 TO 75% MICHAEL CHACON/RN NOTIFIED
--- NOTE | 2021-03-28 12:26 | NUR ---
DR DOE AT BEDSIDE, NOTIFIED DR REGARDING BP ELEVATED @163/96 AND HR @140. PER DR JUST MONITOR BP, AND TO ORDER PRN VERSED 2MG FOR AGITATION Q2H, WILL CONTINUE WITH ORDERS.
[2021-03-28] MEDS ORDERED: MIDAZOLAM 2 MG/2 ML VIAL IVP PRN (12:30)
[2021-03-28] MEDS: ACETAMINOPHEN 325 MG TAB PO PRN (12:33)
[2021-03-28] MEDS: REMDESIVIR. 100 MG in NACL 0.9% 100 ML IV SCH (13:00)
--- NOTE | 2021-03-28 13:55 | NUR ---
SEDATED STABLE REMAINS ON APRV MODE WITH SETTINGS OF Ph [id number] OFF; Th 0.70 Tl 0.50 ENDOTRACHEAL SUCTION FOR LARGE SEMI THICK YELLOW WITH BLOOD TINGE SECRETIONS AIRWAY PATENT SATURATION 100% ON FIO2 OF 75% POST HHN THERAPY TITRATED FIO2 TO 70& MICHAEL CHACON/RN NOTIFIED
[2021-03-28] MEDS: DEXMEDETOMIDINE HCL 400 MCG in NACL 0.9% 96 ML IV PRN (14:15)
--- NOTE | 2021-03-28 15:05 | NUR ---
PT TEMPERATURE 103.0 DESPITE TYLENOL PRN GIVEN 2 HRS AGO, PER DR DOE TO ORDER ACETAMINOPHEN IV ONE TIME, AND TO ORDER BILATERAL EXTREMITIES DOPPLER, AND TO NOTIFY DR POST. WILL PUT IN ORDER AND CONTINUE WITH ORDERS.
[2021-03-28] MEDS ORDERED: ACETAMINOPHEN 100 ML IV SCH (15:15)
[2021-03-28] MEDS: LEVOFLOXACIN 750 MG/D5W PREMIX 150 ML IV SCH (16:42)
--- NOTE | 2021-03-28 17:33 | NUR ---
STABLE EQUAL CHEST RISE GOOD AERATION THROUGHOUT BILATERAL LUNG PENALOZA AIRWAY PATENT SATURATION 100% ON FIO2 OF 70% TITRATED FIO2 TO 65% MICHAEL CHACON/RN NOTIFIED
--- NOTE | 2021-03-28 19:17 | NUR ---
ENDORSED PT TO PREDATORY ANIMAL EXTERMINATOR NURSE FOR CONTINUOUS OF CARE.
--- NOTE | 2021-03-28 19:30 | NUR ---
ASSUMED CARE OF PT.INITIAL ASSESSMENT COMPLETED.PT SEDATED.SR NOTED ON MONITOR.PT ORALLY INTUBATED APRV MODE FIO2 65%. W/GIL PICC LINE INTACT W/GOOD BLOOD RETURN TO BOTH PORTS INFUSING NS AT 80ML/HR, PRECEDEX 400MCG IN 96 ML NS AT 0.6 MCG/KG/HR, FENTANYL 1.5MCG/KG/HR.W/NGT TO LT NARES INTACT.NO RESIDUALS NOTED.ON CONTINUOUS NGT FEEDING GLUCERNA 1.2 AT 40ML/HR, INCREASED TO 60ML/HR ORDERED WITH WATER FLUSH 200ML Q 4HRS.ABDOMEN SOFT.W/ARMENTA CATHETER TO BSD DRAINING SMALL AMT OF YELLOW URINE.W/ RECTAL TUBE ALSO IN PLACE.W/GENERALIZED WEAKNESS ALSO NOTED.SKIN INTACT.FLACC 0.CALL LIGHT WITHIN REACH.BED IN LOW POSITION.
--- NOTE | 2021-03-28 20:00 | NUR ---
ORAL CARE USING VAP KIT RENDERED.PT ON DAILY PROTONIX FOR GI PROPHYLAXIS AND LOVENOX FOR DVT PROPHYLAXIS.REPOSITIONED.
[2021-03-29] VITALS (27 sets, daily range): BP systolic 112–187; BP diastolic 71–112
--- NOTE | 2021-03-29 | NUR ---
TEMP 101.4; CONTINUOUS COOLING MEASURES RENDERED.WILL CONTINUE TO CLOSELY MONITOR PT
[2021-03-29] MEDS ORDERED: DEXMEDETOMIDINE HCL 100 MCG/ML 2 ML VIAL IV ONE ×2 (00:03→21:28)
[2021-03-29] MEDS: ALBUTEROL SULFATE/IPRATROPIU 3 ML SOL IH SCH ×4 (01:09→20:34)
[2021-03-29] MEDS: DEXMEDETOMIDINE HCL 400 MCG in NACL 0.9% 96 ML IV PRN ×4 (01:10→21:49)
[2021-03-29] MEDS: ACETAMINOPHEN 325 MG TAB PO PRN (01:12)
[2021-03-29] MEDS: NACL 0.9% 1,000 ML IV SCH ×3 (02:00→23:25)
--- NOTE | 2021-03-29 04:30 | NUR ---
MORNING CARE DONE.PT AFEBRILE AT THIS TIME.FLACC 0.REPOSITIONED
[2021-03-29] MEDS: BLOOD GLUCOSE MONITORING 1 DEV DEV FS SCH ×4 (06:00→18:03)
[2021-03-29] MEDS: INSULIN LISPRO SLIDING SCALE 100 UNITS/ML VIAL SUBQ PRN ×4 (06:00→19:01)
--- NOTE | 2021-03-29 07:05 | NUR ---
DR. SARAH DOE ROUNDING AT THIS TIME ABG TIMED AT 0800 MD REQUESTED ABG TO BE COMPLETED AT THIS TIME
--- NOTE | 2021-03-29 07:20 | NUR ---
ABG SAMPLE REPORT REVIEWED BY DR. SARAH DOE MD AT BEDSIDE VENTILATOR CHANGES MADE: P high [id number] T high 7.50 DECREASED FIO2 TO 55%; ABG AFTER 2 HOURS
--- NOTE | 2021-03-29 07:27 | NUR ---
SEDATED STABLE RESTING COMFORTABLY NO EVIDENCE OF RESPIRATORY DISTRESS NOTED EQUAL CHEST RISE AIRWAY PATENT
--- NOTE | 2021-03-29 07:30 | NUR ---
RECEIVED REPORT WITH ADELE SZYMANSKI FROM NIGHT RN. PATIENT RESTING COMFORTABLY.
--- NOTE | 2021-03-29 08:30 | NUR ---
PATIENT OPENS EYS TO TACTILE STIMULI. WILL NOT FOLLOW COMMANDS. SPONTANEOUS MOVES UPPER EXTREMETIES. LEFT EYE EDEMATOUS. BILATERAL HANDS WITH 2+ EDEMA. GIL PICC LINE WITH NS 80ML/HR, PRECEDEX AT 0.6MCG/KG/HR, FENTANYL 1.5MCG/KG/HR. HEART SOUNDS REGULAR. SINUS TACHYCARDIA. ANTERIOR/LATERAL BREATH SOUNDS WITH CRACKLES AT LEFT AND RHONCHI AT RIGHT MID AND LOWER LOBES. SAO2 IN THE 90'S. ETT TO VENT APRV MODE. FIO2 DECREASED TO 55% BY RT. RESP. RATE 20-24. NGT IN PLACE WITH GLUCERNA2.0 AT 60CC/HR. HYPOACTIVE BOWEL SOUNDS. RECTAL TUBE IN PLACE WITH LIQUID BROWN STOOL. COLACE HELD. ARMENTA IN PLACE WITH CLEAR DARK BRIANNA URINE.
[2021-03-29] MEDS ORDERED: FUROSEMIDE 40 MG/4 ML VIAL IVP SCH (09:00)
[2021-03-29] MEDS: PANTOPRAZOLE 40 MG INJ VIAL IVP SCH (09:03)
[2021-03-29] MEDS: DEXAMETHASONE 10 MG/ML VIAL IVP SCH (09:03)
[2021-03-29] MEDS: DOCUSATE 100 MG/10 ML UDC GT SCH (09:09)
[2021-03-29] MEDS: BARICITINIB 2 MG TAB PO SCH (09:09)
[2021-03-29] MEDS: ENOXAPARIN 100 MG/ML SYR SUBQ SCH ×2 (09:12→20:43)
[2021-03-29 09:37] LABS: ALBUMIN 1.6 g/dL (3.4-5.0); ANION GAP 12.3 (8-16); CARBON DIOXIDE 27.8 mmol/L (21-32); POTASSIUM 5.1 mmol/L (3.5-5.1); TOTAL BILIRUBIN 0.3 mg/dL (0.0-1.0)
--- NOTE | 2021-03-29 09:57 | NUR ---
CALLED DR. SARAH DOE AT [facility] [phone] RE: JULIANO RESULTS; JOHANA TO PAGE THE FOREMENTIONED MD PATIENT INFORMATION AND CALL BACK NUMBER GIVEN
--- NOTE | 2021-03-29 10:50 | NUR ---
NO EVIDENCE OF RESPIRATORY DISTRESS NOTED GOOD CHEST RISE AIRWAY PATENT
--- NOTE | 2021-03-29 11:25 | NUR ---
03/29/21 RD FOLLOW UP COMPLETED PLEASE REFER TO NUTRITION ASSESSMENT UNDER CARE ACTIVITY FOR ESTIMATED NUTRITIONAL NEEDS. 1. CONTINUE GLUCERNA 1.2 AT 60 ML/HR TOLERATED -FWF: 200 ML Q4H OR PER MD -PROVIDE 1440 ML TOTAL VOLUME, 1728 KCAL, AND 86 GM PROTEIN MEETING 92% EST KCAL NEEDS AND 100% EST PROTEIN NEEDS 2. MONITOR BLOOD GLUCOSE LEVELS 3. RD TO FOLLOW-UP 3-5 DAYS, MODERATE RISK (DOWNGRADED D/T PT TOLERATING TF WELL) GAYATHRI ARAYA RD
--- NOTE | 2021-03-29 12:22 | NUR ---
CALL BACK FROM DR SARAH DOE REVIEWED ABG SAMPLE REPORT TORBO: NO CHANGED TO VENTILATOR SETTINGS; ABG AM 03/30 AT 0800
[2021-03-29] MEDS: LEVOFLOXACIN 750 MG/D5W PREMIX 150 ML IV SCH (16:00)
--- NOTE | 2021-03-29 19:30 | NUR ---
REPORT GIBE TO NIGHT RN. PATIENT RESTING COMFORTABLY.
--- NOTE | 2021-03-29 19:31 | NUR ---
ASSUMED CARE OF PT.INITIAL ASSESSMENT COMPLETED.PT SEDATED.SR NOTED ON MONITOR.PT ORALLY INTUBATED STILL ON APRV MODE FIO2 55%. W/GIL PICC LINE INTACT W/GOOD BLOOD RETURN TO BOTH PORTS INFUSING NS AT 80ML/HR, PRECEDEX 400MCG IN 96 ML NS AT 0.6 MCG/KG/HR, FENTANYL 1.5MCG/KG/HR.W/NGT TO LT NARES INTACT.NO RESIDUALS NOTED.ON CONTINUOUS NGT FEEDING GLUCERNA 1.2 AT 60ML/HR ORDERED WITH WATER FLUSH 200ML Q 4HRS.ABDOMEN SOFT.W/ARMENTA CATHETER TO BSD DRAINING SMALL AMT OF YELLOW URINE.W/ RECTAL TUBE ALSO IN PLACE.BROWNISH WATERY STOOL NOTED.W/GENERALIZED WEAKNESS ALSO NOTED.SKIN INTACT.FLACC 0.CALL LIGHT WITHIN REACH.BED IN LOW POSITION.
[2021-03-30] VITALS (26 sets, daily range): BP systolic 100–159; BP diastolic 53–99
--- NOTE | 2021-03-30 | NUR ---
ORAL CARE USING VAP KIT RENDERED.PT ON LOVENOX FOR DVT PROPHYLAXIS AND PROTONIX FOR GI PROPHYLAXIS. BS CHECK INSULIN COVERAGE ADMINISTERED
[2021-03-30] MEDS: BLOOD GLUCOSE MONITORING 1 DEV DEV FS SCH ×4 (00:16→18:21)
[2021-03-30] MEDS: INSULIN LISPRO SLIDING SCALE 100 UNITS/ML VIAL SUBQ PRN ×3 (00:17→18:34)
[2021-03-30] MEDS: fentaNYL citrate - 50mL vial 2.5 MG in NACL 0.9% 200 ML IV PRN (01:11)
[2021-03-30] MEDS: ALBUTEROL SULFATE/IPRATROPIU 3 ML SOL IH SCH ×3 (02:14→19:43)
--- NOTE | 2021-03-30 03:30 | NUR ---
HR 164; BP 175/120 STAT EKG DONE.RT AT BEDSIDE; 02SAT 70'S; PHONE CALL TO DR KIARA VELAZQUEZ,CASH APPLICATION CLERK; INFORMED OF THE ABOVE V/S; NEW ORDER TO GIVEN LOPRESSOR 5MG IVP Q6HRS FOR HR ABOVE 140, ONE DOSE NOW.
[2021-03-30] MEDS ORDERED: METOPROLOL 5 MG/5 ML VIAL ONE (03:35)
[2021-03-30] MEDS: METOPROLOL 5 MG/5 ML VIAL IV PRN (03:50)
--- NOTE | 2021-03-30 03:50 | NUR ---
METOPROLOL ADMINISTERED ORDERED; NO STOCK IN ICU; GOT MEDS FROM ER. HR 150'S; BP 19/89.WILL CONTINUE TO CLOSELY MONITOR PT
[2021-03-30] MEDS: ACETAMINOPHEN 325 MG TAB PO PRN (04:00)
--- NOTE | 2021-03-30 04:00 | NUR ---
TEMP 101.2/RECTAL ;COOLING MEASURES DONE.TYLENOL ADMINISTERED ORDERED
--- NOTE | 2021-03-30 05:00 | NUR ---
CONTINUOUS COOLING MEASURES RENDERED; TEMP STILL 101.1/RECTAL
[2021-03-30] MEDS ORDERED: DEXMEDETOMIDINE HCL 100 MCG/ML 2 ML VIAL IV ONE (05:08)
[2021-03-30] MEDS: DEXMEDETOMIDINE HCL 400 MCG in NACL 0.9% 96 ML IV PRN ×2 (05:15→22:36)
[2021-03-30 06:11] LABS: BASOPHILS % (AUTO) 0.2 % (0.0-2.0); EOSINOPHILS % (AUTO) 0.1 % (0.0-4.0); HEMATOCRIT 38.8 % (36-52); HEMOGLOBIN 12.8 g/dL (12.0-18.0); LYMPHOCYTES # (AUTO) 0.3 K/uL (2.0-11.5); LYMPHOCYTES % (AUTO) 4.1 % (20.5-51.1); MEAN CORPUSCULAR HEMOGLOBIN 30 pg (27-31); MEAN CORPUSCULAR HGB CONC 33 g/dL (33-37); MEAN CORPUSCULAR VOLUME 91.6 fL (80-94); MONOCYTES # (AUTO) 0.4 K/uL (0.8-1.0); MONOCYTES % (AUTO) 5.2 % (1.7-9.3); NEUTROPHILS # (AUTO) 7.1 K/uL (1.8-7.7); NEUTROPHILS % (AUTO) 90.4 % (42.2-75.2); PLATELET COUNT (AUTO) 205 K/uL (140-450); RED BLOOD CELL COUNT(AUTO) 4.23 MIL/uL (4.20-6.10); RED CELL DISTRIBUTION WIDTH 14.6 % (11.6-13.7); WHITE BLOOD COUNT (AUTO) 7.9 K/uL (4.8-10.8)
[2021-03-30 06:45] LABS: ALBUMIN 1.4 g/dL (3.4-5.0); ANION GAP 13.7 (8-16); CARBON DIOXIDE 27.4 mmol/L (21-32); POTASSIUM 4.1 mmol/L (3.5-5.1); TOTAL BILIRUBIN 0.4 mg/dL (0.0-1.0)
--- NOTE | 2021-03-30 07:30 | NUR ---
RECEIVED REPORT FROM SULY RN PT, IN BED HOB UP 30 DEGREE ETT TO VENT FIO2 100% IV FLUID HAS PICC LINE ON RT UPPER ARM , INFUSING FENTANYL, AND PRECEDEX, AND NS.NG TUBE FEEDING, ARMENTA CATH DRAIN DARK BRIANNA URINE REDTAL TUBE HAS DARK LIQUID BM.
--- NOTE | 2021-03-30 08:39 | NUR ---
SEEN BY DR. DOE AT BED SIDE ORDER RECEVED, PT WAS DESATTING TO 79% AT THAT TIME. HE FUCHS THE SATTING AND ORDER TO HAVE PT TO BE PRONE POSITION.
[2021-03-30] MEDS ORDERED: FUROSEMIDE 40 MG/4 ML VIAL IVP SCH (09:00)
[2021-03-30] MEDS ORDERED: cefTRIAXone 1,000 MG VIAL ONE (09:26)
[2021-03-30] MEDS: DOCUSATE 100 MG/10 ML UDC GT SCH (09:38)
[2021-03-30] MEDS: BARICITINIB 2 MG TAB PO SCH (09:42)
[2021-03-30] MEDS: DEXAMETHASONE 10 MG/ML VIAL IVP SCH (09:42)
[2021-03-30] MEDS: PANTOPRAZOLE 40 MG INJ VIAL IVP SCH (09:42)
[2021-03-30] MEDS: ENOXAPARIN 100 MG/ML SYR SUBQ SCH ×2 (09:43→20:51)
[2021-03-30] MEDS ORDERED: AZITHROMYCIN 500 MG INJ VIAL IV ONE (10:01)
[2021-03-30] MEDS: NACL 0.9% 1,000 ML IV SCH (11:55)
--- NOTE | 2021-03-30 14:30 | NUR ---
TURN PT TO RRONE POSITION. PT IS DE SAT TP 54
[2021-03-30] MEDS: LEVOFLOXACIN 750 MG/D5W PREMIX 150 ML IV SCH (15:10)
--- NOTE | 2021-03-30 15:45 | NUR ---
CALL RT PT CONTINUE DE SAT TO 67. BL. GAS STUDY WAS DRAW,
--- NOTE | 2021-03-30 16:15 | NUR ---
NADER CRUZ PAGED PT REMAIN DE SATING AND REPORT ABG RESULT , CALL RT TO TALK TO HIM.
--- NOTE | 2021-03-30 16:36 | NUR ---
PT FOUND ON A/C VC DESATURATING INTO LOW 50'S. PT SWITCHED TO DIFFERENT VENT MODES TO IMPROVE OXYGENATION. PT PLACED ON A/C PC Pinsp 28, R22, PEEP [id number] AND FIO2 100%. SPO2 INCREASED TO 90'S. PT IS IN PRONE POSITION TOLERATING WELL. NURSE IS BEDSIDE. WILL CONTINUE TO MONITOR.
--- NOTE | 2021-03-30 17:00 | NUR ---
START VERSED IV DRIP.
[2021-03-30] MEDS ORDERED: NOREPINEPHRINE 8 MG in DEXTROSE 5% 250 ML IV PRN (17:25)
--- NOTE | 2021-03-30 19:30 | NUR ---
RECEIVED PATIENT ON BED IN PRONE POSITION; ORALLY INTUBATED AND VENTILATED AT 100% FIO2; CARDIACSCOPE SHOWS ON SINUS RHYTHM HR 87/MIN; COMMENCING ON IV FENTANYL AT 1.8 MCG/KG/HR, VERSED AT 1 MG/HR AND ON PRECEDEX DRIP AT 1 MCG/KG/HR VIA PICC LINE TO LEFT ARM AND ON NORMAL SALINE AT 80 ML/HR; PATENT AND INTACT. TUBE FEEDING ON HOLD WHILE IN PRONE POSITION. ARMENTA CATH IN SITU TO GRAVITY DRAINAGE BAG DRAINING TO CLOUDY BRIANNA COLOR URINE OUTPUT; RECTAL IN PLACE DRAINING TO WATERY BROWN STOOL, SMALL IN AMOUNT.
--- NOTE | 2021-03-30 19:30 | NUR ---
REPORT GIVE TO ABIODUN RN,
--- NOTE | 2021-03-30 20:02 | NUR ---
RECEIVE ON A [employer] R860 VENTILATOR PLUGGED INTO RED OUTLET TOLERATING WELL WITHOUT ADVERSE REACTIONS NOTED TO AN ENDOTRACHEAL TUBE #8.0 SECURE AT 25cm TEETH/GUM LINE WITH ANCHOR FAST CUFF PRESSURE CHECKED NOTED AMBU BAG AT BEDSIDE SEDATED RESTING COMFORTABLY IN PRONE POSITION HEAD FACING RIGHT WITH TUBE AT RIGHT SIDE OF ORAL EQUAL CHEST RISE GOOD AERATION THROUGHOUT BILATERAL LUNG PENALOZA AIRWAY PATENT Addendum: 03/30/21 at 2213 by Miles Camarillo RT EXPIRATORY Vt +900 ml; 8 ml/kg = 580 ml DECREASED Pinsp TO 18 cmH2O EXPIRATORY Vt NOW 750 TO 850 ml
[2021-03-30] MEDS: METOPROLOL 25 MG TAB NG SCH (20:52)
--- NOTE | 2021-03-30 23:47 | NUR ---
SEDATED REMAINS IN PRONE POSITION TOLERATING WELL EQUAL CHEST RISE GOOD AERATION THROUGHOUT BILATERAL LUNG PENALOZA AIRWAY PATENT SATURATION 98% ON FIO2 OF 100% PEEP 14 cmH2O TITRATED FIO2 TO 90%
[2021-03-31] VITALS (29 sets, daily range): BP systolic 108–150; BP diastolic 64–95
[2021-03-31] MEDS: INSULIN LISPRO SLIDING SCALE 100 UNITS/ML VIAL SUBQ PRN ×3 (01:02→12:22)
--- NOTE | 2021-03-31 02:30 | NUR ---
SEDATED TOLERATING PRONE POSITION WITHOUT COMPLICATIONS EQUAL CHEST RISE ENDOTRACHEAL SUCTION FOR SMALL THIN YELLOW SECRETIONS AIRWAY PATENT
--- NOTE | 2021-03-31 03:20 | NUR ---
PLACED IN SUPINE POSITION WITHOUT COMPLICATIONS NOTED GOOD CHEST RISE AIRWAY PATENT
--- NOTE | 2021-03-31 03:30 | NUR ---
MORNING BED BATH DONE AFTER PUTTING BACK THE PATIENT IN SUPINE POSITION; TUBE FEEDING WAS RESUMED GLUCERNA AT 60 ML/HR.
[2021-03-31] MEDS: DEXMEDETOMIDINE HCL 400 MCG in NACL 0.9% 96 ML IV PRN ×5 (04:06→23:28)
[2021-03-31] MEDS: fentaNYL citrate - 50mL vial 2.5 MG in NACL 0.9% 200 ML IV PRN (04:08)
[2021-03-31] MEDS: BLOOD GLUCOSE MONITORING 1 DEV DEV FS SCH ×4 (06:28→18:06)
[2021-03-31] MEDS: NACL 0.9% 1,000 ML IV SCH ×2 (06:28→12:55)
[2021-03-31] MEDS: ALBUTEROL SULFATE/IPRATROPIU 3 ML SOL IH SCH ×2 (07:00→13:00)
--- NOTE | 2021-03-31 07:25 | NUR ---
RECEIVED PT ON PC SETTING. PT SUPINE WITH EQUAL BILAT CHEST RISE. REPLACED TAPE WITH ETT TONY SECURED AT 25 TEETH AND PLACED OPTIFOAM ON LEFT CHEEK. PT WITH ADEQUATE VOLUMES WITH SPO2 OF 95%. WILL CONTINUE TO MONITOR.
--- NOTE | 2021-03-31 07:30 | NUR ---
RECEIVED REPORT FROM NIGHT RN. PATIENT SEDATED. BP STABLE. SAO2 93%
--- NOTE | 2021-03-31 08:30 | NUR ---
PATIENT SEDATED. GIL PICC LINE IN PLACE. NS AT 80CC/HR, FENTANYL AT 2 MCG/KG/HR, PRECEDEX AT 1MCG/KG/HR, VERSED AT 1MG/HR. OPENS EYES TO VERBAL STIMULI. DOES NOT FOLLOW COMMANDS. HEART SOUNDS REGULAR. SR WITH RATE IN 80'S. ANTERIOR/LATERAL BREATH SOUNDS COARSE BILATERALLY. ETT TO VENT AC/PC FIO2.90/ RATE 22/ PEEP 14. SAO2 93%. HYPOACTIVE BOWEL SOUNDS. NGT IN PLACE WITH GLUCERNA 2.0 AT 60CC/HR. RISIDUAL 70CC. ABDOMEN SOFT. RECTAL TUBE IN PLACE WITH BROWN LIQUID STOOL. ARMENTA IN PLACE WITH BRIANNA URINE.
[2021-03-31] MEDS: DEXAMETHASONE 10 MG/ML VIAL IVP SCH (08:50)
[2021-03-31] MEDS: METOPROLOL 25 MG TAB NG SCH ×2 (08:51→21:30)
[2021-03-31] MEDS: ENOXAPARIN 100 MG/ML SYR SUBQ SCH ×2 (08:51→21:30)
[2021-03-31] MEDS: BARICITINIB 2 MG TAB PO SCH (08:51)
[2021-03-31] MEDS: PANTOPRAZOLE 40 MG INJ VIAL IVP SCH (08:51)
--- NOTE | 2021-03-31 09:00 | NUR ---
DR. VELAZQUEZ HERE TO SEE PATIENT, ORDERS RECEIVED. NS DECREASED TO 10CC/HR.
[2021-03-31] MEDS: DOCUSATE 100 MG/10 ML UDC GT SCH (09:25)
--- NOTE | 2021-03-31 10:30 | NUR ---
SAO2 DECREASED T 87-88%. RT AT BEDSIDE AND INCREASED FIO2 TO 100 AND ADMINISTERING BREATHING TREATMENT. SAO2 UP TO 88-90%.
[2021-03-31] MEDS: ACETAMINOPHEN 325 MG TAB PO PRN ×2 (10:50→18:06)
--- NOTE | 2021-03-31 11:00 | NUR ---
PORTABLE CXR COMPLETE.
[2021-03-31 11:47] LABS: ANION GAP 11.9 (8-16); CARBON DIOXIDE 28.3 mmol/L (21-32); CREATININE 0.9 mg/dL (0.6-1.3); POTASSIUM 5.2 mmol/L (3.5-5.1)
--- NOTE | 2021-03-31 12:00 | NUR ---
PATIENT TEMP ELEVATED TO 101.4 TYLENOL 650MG GIVEN PER NG.
--- NOTE | 2021-03-31 14:10 | NUR ---
TEMP CONTINUES TO BE 101.5. ICE PACKS AND COOL CLOTH PLACED ON PATIENT.
--- NOTE | 2021-03-31 15:15 | NUR ---
PATIENT POSITIONED TO PRONE. SAO2 DROPPED TO 70'S. BP 132/68. HR 90'S.
--- NOTE | 2021-03-31 15:30 | NUR ---
CALLED RT DUE TO LOW SAO2. SUCTIONED PATIENT WITH MODERATE AMOUNT OF THICK NIETO SECRETIONS. SAO2 75-80%. COOLING BLANKET PLACED FOR CONTINUED TEMP 101. CONTINUING TO MONITOR CLOSELY.
--- NOTE | 2021-03-31 15:45 | NUR ---
INCREASED VERSED TO 2MG/HR. SAO2 INCREASED TO 80-83%. CONTINUING TO MONITOR. BP 128/72
[2021-03-31] MEDS: LEVOFLOXACIN 750 MG/D5W PREMIX 150 ML IV SCH (16:27)
--- NOTE | 2021-03-31 17:00 | NUR ---
SAO2 IMPROVING TO 88-92%. WILL LEAVE VERSED AT 2MG.
--- NOTE | 2021-03-31 18:00 | NUR ---
SAO2 IMPROVED UP TO 91-94%. TEMP 101.9. TYLENOL GIVEN. COOLING BLANKET IN PLACE. CAME TO BOWLING BALL FINISHER BELONGINGS. GAVE HER UPDATE ON PATIENT CONDITION. SIGNED DOCUMENT FOR BELONGINGS.
--- NOTE | 2021-03-31 19:12 | NUR ---
REPORT GIVEN TO NIGHT RN.
--- NOTE | 2021-03-31 19:30 | NUR ---
RECEIVED PATIENT ON BED ORALLY INTUBATED AND VENTILATED AT 100%FIO2; SEDATED RASS-3 WITH CONTINOUS FENTANYL DRIP, PRECEDEX AND VERSED DRIP. IVF IN PROGRESS NORMAL SALINE AT 80 ML/HR VIA PICC LINE TO RIGHT UPPER ARM. PATIENT IS ON PRONE POSITION.ARMENTA CATH IN PLACE DRAINING TO CLEAR YELLOW URINE OUTPUT; RECTAL TUBE IN PLACE; INTACT.
[2021-03-31] MEDS ORDERED: VANCOMYCIN PER PHARMACY MC PRN (19:50)
--- NOTE | 2021-03-31 20:30 | NUR ---
SEEN BY DR. POST, WITH NEW ORDERS, CARRIED OUT.
[2021-03-31] MEDS ORDERED: VANCOMYCIN 1GM/DEXT 5% PREMIX 200 ML IV SCH (21:00)
[2021-03-31] MEDS ORDERED: VANCOMYCIN 1,000 MG VIAL ONE (21:33)
[2021-03-31] MEDS ORDERED: VANCOMYCIN 500 MG VIAL ONE (21:34)
[2021-03-31] MEDS ORDERED: VANCOMYCIN 500 MG in DEXTROSE 5% 100 ML IV SCH (22:30)
[2021-04-01] VITALS (26 sets, daily range): BP systolic 117–160; BP diastolic 66–96
[2021-04-01] MEDS: INSULIN LISPRO SLIDING SCALE 100 UNITS/ML VIAL SUBQ PRN ×4 (01:16→18:20)
[2021-04-01] MEDS: NACL 0.9% 1,000 ML IV SCH ×2 (01:25→13:55)
[2021-04-01] MEDS: DEXMEDETOMIDINE HCL 400 MCG in NACL 0.9% 96 ML IV PRN ×5 (03:10→20:18)
--- NOTE | 2021-04-01 03:10 | NUR ---
REPOSITIONED PATIENT BACK TO SUPINED POSITION; MORNING CARE DONE; TUBE FEEDING RESUMED
--- NOTE | 2021-04-01 05:30 | NUR ---
SEEN BY DR. DOE; NO NEW ORDER MADE.
[2021-04-01] MEDS: BLOOD GLUCOSE MONITORING 1 DEV DEV FS SCH ×4 (06:41→18:22)
--- NOTE | 2021-04-01 07:15 | NUR ---
RECEIVED BEDSIDE REPORT FROM ABIODUN RN FOR CONTINUITY OF CARE. PT SEDATED RASS -3. LYING SUPINE IN THE BED. ETT TO VENT, ACPC FIO2 100% R 22, PEEP 14. SR ON MONITOR. NGT TO L NARE INFUSING GLUCERNA AT 60 ML/HR W/ 200CC WATER FLUSH Q6H. R UA PICC IN PLACE, PATENT, INTACT. INFUSING FENTANYL AT 1.8 MCG/KG/H, PRECEDEX AT 1 MCG/KG/H, VERSED AT 2 MG/H, AND NS AT 80 ML/HR. F/C IN PLACE, DRAINING TO GRAVITY. RECTAL TUBE IN PLACE, DRAINING TO GRAVITY. MARKED AT [address]. [address] PRECA[address]IONS IN PLACE. SAFETY PRECAUTIONS MET. CALL LIGHT WITHIN REACH. INITIAL ASSESSMENT COMPLETE, WILL CONTINUE TO MONITOR.
[2021-04-01] MEDS: fentaNYL citrate - 50mL vial 2.5 MG in NACL 0.9% 200 ML IV PRN ×2 (08:16→21:09)
[2021-04-01] MEDS: ALBUTEROL SULFATE/IPRATROPIU 3 ML SOL IH SCH ×3 (08:25→20:18)
[2021-04-01] MEDS: VANCOMYCIN HCL 1.25 GM in DEXTROSE 5% 250 ML IV SCH ×2 (08:30→16:05)
[2021-04-01] MEDS: PANTOPRAZOLE 40 MG INJ VIAL IVP SCH (09:10)
[2021-04-01] MEDS: DOCUSATE 100 MG/10 ML UDC GT SCH (09:10)
[2021-04-01] MEDS: METOPROLOL 25 MG TAB NG SCH ×2 (09:10→21:20)
[2021-04-01] MEDS: DEXAMETHASONE 10 MG/ML VIAL IVP SCH (09:10)
[2021-04-01] MEDS: BARICITINIB 2 MG TAB PO SCH (09:11)
[2021-04-01] MEDS: ENOXAPARIN 100 MG/ML SYR SUBQ SCH ×2 (09:12→21:20)
--- NOTE | 2021-04-01 11:00 | NUR ---
SEEN AND EXAMINED BY DR VELAZQUEZ.
[2021-04-01 11:06] LABS: BASOPHILS % (AUTO) 0.1 % (0.0-2.0); EOSINOPHILS % (AUTO) 0.3 % (0.0-4.0); HEMATOCRIT 34.2 % (36-52); HEMOGLOBIN 11.4 g/dL (12.0-18.0); LYMPHOCYTES # (AUTO) 0.5 K/uL (2.0-11.5); MEAN CORPUSCULAR HEMOGLOBIN 30 pg (27-31); MEAN CORPUSCULAR HGB CONC 33 g/dL (33-37); MEAN CORPUSCULAR VOLUME 91.4 fL (80-94); MONOCYTES # (AUTO) 0.3 K/uL (0.8-1.0); MONOCYTES % (AUTO) 3.7 % (1.7-9.3); NEUTROPHILS # (AUTO) 7.5 K/uL (1.8-7.7); NEUTROPHILS % (AUTO) 89.9 % (42.2-75.2); PLATELET COUNT (AUTO) 186 K/uL (140-450); RED BLOOD CELL COUNT(AUTO) 3.74 MIL/uL (4.20-6.10); RED CELL DISTRIBUTION WIDTH 14.6 % (11.6-13.7); WHITE BLOOD COUNT (AUTO) 8.4 K/uL (4.8-10.8)
[2021-04-01 11:42] LABS: ALBUMIN 1.1 g/dL (3.4-5.0); ANION GAP 12.1 (8-16); CARBON DIOXIDE 30.4 mmol/L (21-32); CREATININE 0.8 mg/dL (0.6-1.3); MAGNESIUM 2.1 mg/dL (1.8-2.4); POTASSIUM 5.5 mmol/L (3.5-5.1); TOTAL BILIRUBIN 0.3 mg/dL (0.0-1.0)
[2021-04-01] MEDS ORDERED: INSULIN LANTUS 100 UNITS/ML 10 ML VIAL SUBQ SCH (13:07)
[2021-04-01] MEDS: MIDAZOLAM MDV 100 MG in NACL 0.9% 80 ML IV PRN (13:28)
--- NOTE | 2021-04-01 14:45 | NUR ---
PT CLEANED AND REPOSITIONED TO PRONE POSITION. FEEDING HELD WHILE PRONE. PT TOLERATED WELL. WILL CONTINUE TO MONITOR.
[2021-04-01] MEDS: LEVOFLOXACIN 750 MG/D5W PREMIX 150 ML IV SCH (16:04)
--- NOTE | 2021-04-01 19:15 | NUR ---
ENDORSED BEDSIDE REPORT TO ABIODUN RN FOR CONTINUITY OF CARE.
--- NOTE | 2021-04-01 19:20 | NUR ---
RECEIVED PATIENT IN BED STILL INTUBATED AND VENTILATED AT 100% FIO2; SEDATED WITH FENTANYL, VERSED AND PRECEDEX DRIP VIA PICC LINE TO RIGHT UPPER ARM, IVF IN PROGRESS NORMAL SALINE AT 80 ML/HR WHILE IN PRONE POSITION AND TUBE FEEDING ON HOLD WHILE PATIENT IS IN PRONE POSITION.
[2021-04-02] VITALS (30 sets, daily range): BP systolic 106–145; BP diastolic 56–80
--- NOTE | 2021-04-02 00:15 | NUR ---
ACCUCHECK DONE; 4 UNITS INSULIN LISPRO GIVEN PER SLIDING SCALE.
[2021-04-02] MEDS: VANCOMYCIN HCL 1.25 GM in DEXTROSE 5% 250 ML IV SCH ×3 (00:38→20:00)
[2021-04-02] MEDS: BLOOD GLUCOSE MONITORING 1 DEV DEV FS SCH ×4 (00:42→17:54)
[2021-04-02] MEDS: ALBUTEROL SULFATE/IPRATROPIU 3 ML SOL IH SCH ×4 (00:50→21:07)
[2021-04-02] MEDS: DEXMEDETOMIDINE HCL 400 MCG in NACL 0.9% 96 ML IV PRN ×4 (01:00→16:54)
--- NOTE | 2021-04-02 03:15 | NUR ---
PUT BACK ON SUPINE POSITION AFTER AROUND 12 HRS IN SUPINE. MORNING BED BATH DONE; TUBE FEEDING GLUCERNA RESUMED AND IV NORMAL SALINE WAS HOLD.
[2021-04-02] MEDS: INSULIN LISPRO SLIDING SCALE 100 UNITS/ML VIAL SUBQ PRN ×3 (06:10→17:54)
[2021-04-02 06:50] LABS: ANION GAP 10.3 (8-16); CARBON DIOXIDE 31.8 mmol/L (21-32); CREATININE 0.8 mg/dL (0.6-1.3); POTASSIUM 5.1 mmol/L (3.5-5.1)
[2021-04-02] MEDS: NACL 0.9% 1,000 ML IV SCH ×2 (07:00→15:54)
--- NOTE | 2021-04-02 07:30 | NUR ---
RECEIVED BEDSIDE REPORT FROM DYER HELPER NURSE. PT SEDATED RASS -3. ON ETT TO VENT, ACPC FIO2 80%, RATE 22 PEEP 14, NO SOB NOTED, SATURATING @ 99%. R UA PICC PATENT INTACT, INFUSING FENTANYL @ 1.8 MCG/KG/HR, PRECEDEX @ 0.7MCG/KG/HR, VERSED @ 2MG/HR, INFUSING WELL. NGT TO LEFT NARES, PATENT INTACT, RESIDUAL 30ML, TUBE FEEDING RUNNING. ARMENTA CATH IN PLACE DRAINING TO GRAVITY. ARMENTA CATH IN PLACE,RECTAL TUBE IN PLACE DRAINING GRAVITY. INITIAL ASSESSMENT DONE, ALL SAFETY PRECAUTION MET, CALL LIGHT WITHIN REACH, WILL CONTINUE TO MONITOR.
[2021-04-02] MEDS: DOCUSATE 100 MG/10 ML UDC GT SCH (08:57)
[2021-04-02] MEDS: ENOXAPARIN 100 MG/ML SYR SUBQ SCH ×2 (08:58→20:41)
[2021-04-02] MEDS: METOPROLOL 25 MG TAB NG SCH ×2 (08:58→20:41)
--- NOTE | 2021-04-02 08:58 | NUR ---
DUE MEDICATIONS ADMINISTERED, PT TOLERATED WELL, CHG BATH GIVEN, WILL CONTINUE TO MONITOR.
[2021-04-02] MEDS: DEXAMETHASONE 10 MG/ML VIAL IVP SCH (08:59)
[2021-04-02] MEDS: PANTOPRAZOLE 40 MG INJ VIAL IVP SCH (08:59)
[2021-04-02] MEDS: BARICITINIB 2 MG TAB PO SCH (09:00)
[2021-04-02] MEDS: INSULIN LANTUS 100 UNITS/ML 10 ML VIAL SUBQ SCH (09:29)
[2021-04-02 11:21] LABS: BASOPHILS % (AUTO) 0.2 % (0.0-2.0); EOSINOPHILS % (AUTO) 0.3 % (0.0-4.0); HEMATOCRIT 34.8 % (36-52); HEMOGLOBIN 11.4 g/dL (12.0-18.0); LYMPHOCYTES # (AUTO) 0.8 K/uL (2.0-11.5); LYMPHOCYTES % (AUTO) 8.2 % (20.5-51.1); MEAN CORPUSCULAR HEMOGLOBIN 30 pg (27-31); MEAN CORPUSCULAR HGB CONC 33 g/dL (33-37); MEAN CORPUSCULAR VOLUME 91.9 fL (80-94); MONOCYTES # (AUTO) 0.4 K/uL (0.8-1.0); MONOCYTES % (AUTO) 4.6 % (1.7-9.3); NEUTROPHILS # (AUTO) 8.2 K/uL (1.8-7.7); NEUTROPHILS % (AUTO) 86.7 % (42.2-75.2); PLATELET COUNT (AUTO) 197 K/uL (140-450); RED BLOOD CELL COUNT(AUTO) 3.78 MIL/uL (4.20-6.10); RED CELL DISTRIBUTION WIDTH 14.5 % (11.6-13.7); WHITE BLOOD COUNT (AUTO) 9.5 K/uL (4.8-10.8)
[2021-04-02] MEDS: fentaNYL citrate - 50mL vial 2.5 MG in NACL 0.9% 200 ML IV PRN (13:34)
--- NOTE | 2021-04-02 13:34 | NUR ---
DUE MEDICATIONS ADMINISTERED, PT TOLERATED WELL, WILL CONTINUE TO MONITOR.
--- NOTE | 2021-04-02 15:30 | NUR ---
SUCCESSFULLY PRONE PT, TOLERATED WELL, NO DISTRESS NOTED, WILL CONTINUE TO MONITOR.
--- NOTE | 2021-04-02 15:30 | NUR ---
PT PLACED INTO PRONE POSITION WITH ICU NURSES. ETT IS SECURE WITH A PATENT AIRWAY. WILL CONTINUE TO MONITOR.
[2021-04-02] MEDS: LEVOFLOXACIN 750 MG/D5W PREMIX 150 ML IV SCH (15:49)
--- NOTE | 2021-04-02 16:40 | NUR ---
04/02/21 RD FOLLOW UP COMPLETED PLEASE REFER TO NUTRITION PROGRESS NOTE UNDER CARE ACTIVITY FOR ESTIMATED NUTRITION NEEDS. RD RECOMMENDATIONS: 1. IF PT WILL BE ON TUBE FEEDING FOR 12 HOURS, RECOMMEND GLUCERNA 1.2 AT 100 ML/HR X 12 HOURS. -THIS WILL PROVIDE 1440 KCAL AND 72 GM OF PROTEIN, ADEQUATE TO MEET >75% OF ESTIMATED KCAL AND PROTEIN NEEDS. 2. IF PT WILL BE ON CONTINOUS 24 HR FEEDING, CONTINUE WITH GLUCERNA 1.2 AT 60 ML/HR TOLERATED -FWF: 200 ML Q4H OR PER MD -PROVIDE 1440 ML TOTAL VOLUME, 1728 KCAL, AND 86 GM PROTEIN MEETING 92% EST KCAL NEEDS AND 100% EST PROTEIN NEEDS 3. MONITOR BLOOD GLUCOSE LEVELS 4. RD TO FOLLOW-UP 2-3 DAYS, HIGH RISK BRO GODINEZ, RD
--- NOTE | 2021-04-02 17:54 | NUR ---
DUE MEDICATIONS ADMINISTERED, PT TOLERATED WELL, NO DISTRESS NOTED. CALL LIGHT WITHIN REACH. WILL CONTINUE TO MONITOR.
--- NOTE | 2021-04-02 19:09 | NUR ---
ENDORSED PT TO ULTRASONIC SOLDERER NURSE RIP FOR CONTINUOUS OF CARE.
--- NOTE | 2021-04-02 19:30 | NUR ---
ASSUMED CARE OF PT.INITIAL ASSESSMENT COMPLETED.PT SEDATED.SR NOTED ON MONITOR.ETT TO VENT AC PC MODE FIO2 80% RATE 18 PEEP 14./ W/ GIL PICC LINE INTACT W/GOOD BLOOD RETURN TO BOTH PORTS INFUSING NS AT 60ML/HR, PRECEDEX 400MCG IN 96 ML NS AT 0.5 MCG/KG/HR, FENTANYL 1 MCG/KG/HR AND VERSED AT 2 MG/HR.W/NGT TO LT NARES INTACT. NGT CLAMPED FOR NOW; PT ON PRONE POSITION.W/ARMENTA CATHETER TO BSD DRAINING SMALL AMT OF YELLOW URINE.W/ RECTAL TUBE ALSO IN PLACE.BROWNISH WATERY STOOL NOTED.W/GENERALIZED WEAKNESS ALSO NOTED.SKIN INTACT.FLACC 0.CALL LIGHT WITHIN REACH.BED IN LOW POSITION.
--- NOTE | 2021-04-02 22:00 | NUR ---
PT STILL ON PRONE POSITION.NOT IN ANY DISTRESS AT THIS TIME.WILL CONTINUE TO CLOSELY MONITOR PT
[2021-04-03] VITALS (31 sets, daily range): BP systolic 107–180; BP diastolic 58–110
--- NOTE | 2021-04-03 | NUR ---
BS CHECKED 183; 2 UNITS INSULIN ADMINISTERED ORDERED.
[2021-04-03] MEDS: DEXMEDETOMIDINE HCL 400 MCG in NACL 0.9% 96 ML IV PRN (00:33)
--- NOTE | 2021-04-03 03:30 | NUR ---
PTS POSITION CHANGED TO SUPINE WITH RT AND RN AT BEDSIDE.NOTED PRESSURE ULCER TO LT CHEEK; PHOTO TAKEN; CLEANSE WITH NS AND DRESSING APPLIED.
[2021-04-03] MEDS: VANCOMYCIN HCL 1.25 GM in DEXTROSE 5% 250 ML IV SCH ×3 (04:00→20:22)
[2021-04-03] MEDS: INSULIN LISPRO SLIDING SCALE 100 UNITS/ML VIAL SUBQ PRN ×3 (06:16→23:59)
[2021-04-03] MEDS: BLOOD GLUCOSE MONITORING 1 DEV DEV FS SCH ×5 (06:16→23:58)
[2021-04-03] MEDS: NACL 0.9% 1,000 ML IV SCH (06:17)
[2021-04-03 07:15] LABS: ANION GAP 11.1 (8-16); CARBON DIOXIDE 31.3 mmol/L (21-32); CREATININE 0.8 mg/dL (0.6-1.3); POTASSIUM 4.4 mmol/L (3.5-5.1)
[2021-04-03] MEDS: ALBUTEROL SULFATE/IPRATROPIU 3 ML SOL IH SCH ×3 (07:15→19:00)
--- NOTE | 2021-04-03 07:20 | NUR ---
REPORT GIVEN TO NAHEED FOR CONTINUITY OF CARE
--- NOTE | 2021-04-03 07:30 | NUR ---
RECEIVED REPORT FROM ROCÍO SZYMANSKI PT. IN BED HOB UP 30 DEGREE SETTING FIO2 30 ,30P RUPA 18 PEEP 5 02 SAT95%, FC. DRAIN CLEAE YELLOW URINE.GT FEEDING WITH OSMOLITE AT 50 ML/H. Addendum: 04/03/21 at 1108 by Neo Fenton RN THIS NOTE IS NOT FOR THISE PATIENT.
[2021-04-03] MEDS: BARICITINIB 2 MG TAB PO SCH (09:00)
--- NOTE | 2021-04-03 09:00 | NUR ---
FEEDING INCREASE TP 75 ML/HR. AFTER RESIDAUL CHECK AT 15ML.
[2021-04-03] MEDS: DOCUSATE 100 MG/10 ML UDC GT SCH (09:03)
[2021-04-03] MEDS: DEXAMETHASONE 10 MG/ML VIAL IVP SCH (09:04)
[2021-04-03] MEDS: PANTOPRAZOLE 40 MG INJ VIAL IVP SCH (09:06)
[2021-04-03] MEDS: METOPROLOL 25 MG TAB NG SCH ×2 (09:07→20:24)
[2021-04-03] MEDS: INSULIN LANTUS 100 UNITS/ML 10 ML VIAL SUBQ SCH (09:08)
[2021-04-03] MEDS: ENOXAPARIN 100 MG/ML SYR SUBQ SCH ×2 (09:08→20:24)
[2021-04-03 12:33] LABS: EOSINOPHILS % (AUTO) 0.1 % (0.0-4.0); HEMATOCRIT 35.1 % (36-52); HEMOGLOBIN 11.6 g/dL (12.0-18.0); LYMPHOCYTES # (AUTO) 0.9 K/uL (2.0-11.5); LYMPHOCYTES % (AUTO) 6.5 % (20.5-51.1); MEAN CORPUSCULAR HEMOGLOBIN 30 pg (27-31); MEAN CORPUSCULAR HGB CONC 33 g/dL (33-37); MONOCYTES # (AUTO) 0.4 K/uL (0.8-1.0); NEUTROPHILS % (AUTO) 90.4 % (42.2-75.2); PLATELET COUNT (AUTO) 221 K/uL (140-450); WHITE BLOOD COUNT (AUTO) 13.3 K/uL (4.8-10.8)
--- NOTE | 2021-04-03 15:20 | NUR ---
PT PLACED INTO PRONE POSITION WITH HELP OF ICU NURSES AND VICE PRESIDENT SALES. ETT REMAINS SECURE WITH A PATENT AIRWAY. VENT ALARMS ON AND FUNCTIONING.
[2021-04-03] MEDS: LEVOFLOXACIN 750 MG/D5W PREMIX 150 ML IV SCH (16:03)
--- NOTE | 2021-04-03 18:00 | NUR ---
BLOOD SUGAR 273 INSULIN COVER ORDERED,.
--- NOTE | 2021-04-03 19:22 | NUR ---
REPORT GIVE TO ESTRELLA SZYMANSKI FOR CONTINUE CARE.
--- NOTE | 2021-04-03 19:30 | NUR ---
RECEIVED REPORT FORM NAHEED SZYMANSKI.PT ON PRONE POSITION.PT SEDATED.SR NOTED ON MONITOR.ETT TO VENT AC PC MODE FIO2 75% RATE 22 PEEP 14./ W/ GIL PICC LINE INTACT W/GOOD BLOOD RETURN TO BOTH PORTS INFUSING NS AT 60ML/HR, PRECEDEX 400MCG IN 96 ML NS AT 0.7 MCG/KG/HR, FENTANYL 1.5 MCG/KG/HR AND VERSED AT 4 MG/HR.W/NGT TO LT NARES INTACT. NGT CLAMPED FOR NOW.W/ARMENTA CATHETER TO BSD DRAINING SMALL AMT OF YELLOW URINE.W/ RECTAL TUBE ALSO ALREADY IN PLACE.W/GENERALIZED WEAKNESS ALSO NOTED.FLACC 0
--- NOTE | 2021-04-03 21:00 | NUR ---
ALL DUE MEDS GIVEN.PT STILL ON PRONE POSITION.NO DISTRESS NOTED AT TIS TIME.
--- NOTE | 2021-04-03 23:25 | NUR ---
PHONE CALL FROM DR POST; ORDERED TO DC ALL ANTIBIOTICS.
[2021-04-04] VITALS (26 sets, daily range): BP systolic 94–168; BP diastolic 47–97
[2021-04-04] MEDS: ALBUTEROL SULFATE/IPRATROPIU 3 ML SOL IH SCH ×3 (01:00→19:00)
--- NOTE | 2021-04-04 04:00 | NUR ---
PTS POSITION CHANGED TO SUPINE WITH RT AT BEDSIDE.MORNING CARE DONE.ORAL CARE RENDERED.
[2021-04-04] MEDS: fentaNYL citrate - 50mL vial 2.5 MG in NACL 0.9% 200 ML IV PRN (05:00)
[2021-04-04 05:39] LABS: BASOPHILS % (AUTO) 0.1 % (0.0-2.0); EOSINOPHILS % (AUTO) 0.4 % (0.0-4.0); HEMATOCRIT 32.7 % (36-52); HEMOGLOBIN 10.9 g/dL (12.0-18.0); LYMPHOCYTES % (AUTO) 7.9 % (20.5-51.1); MEAN CORPUSCULAR HEMOGLOBIN 30 pg (27-31); MEAN CORPUSCULAR HGB CONC 33 g/dL (33-37); MONOCYTES # (AUTO) 0.4 K/uL (0.8-1.0); MONOCYTES % (AUTO) 3.6 % (1.7-9.3); NEUTROPHILS # (AUTO) 10.9 K/uL (1.8-7.7); PLATELET COUNT (AUTO) 212 K/uL (140-450); RED BLOOD CELL COUNT(AUTO) 3.64 MIL/uL (4.20-6.10); WHITE BLOOD COUNT (AUTO) 12.4 K/uL (4.8-10.8)
[2021-04-04] MEDS: BLOOD GLUCOSE MONITORING 1 DEV DEV FS SCH ×3 (06:00→19:00)
[2021-04-04] MEDS: DEXMEDETOMIDINE HCL 400 MCG in NACL 0.9% 96 ML IV PRN ×2 (06:00→23:33)
[2021-04-04 06:25] LABS: ANION GAP 10.9 (8-16); CARBON DIOXIDE 29.9 mmol/L (21-32); CREATININE 0.8 mg/dL (0.6-1.3); POTASSIUM 4.8 mmol/L (3.5-5.1)
[2021-04-04] MEDS: NACL 0.9% 1,000 ML IV SCH ×2 (06:53→17:16)
--- NOTE | 2021-04-04 06:54 | NUR ---
PT CONDITION REMAINS UNCHANGED.STILL SEDATED ON FENTANYL,VERSED AND PRECEDEX DRIPS PER PROTOCOL. PICC LINE TO GIL INTACT.ARMENTA CATHETER AND RECTAL TUBE INTACT.FLACC 0
--- NOTE | 2021-04-04 07:18 | NUR ---
RECEIVED ON A [employer] R860 VENTILATOR PLUGGED INTO RED OUTLET TOLERATING WELL WITHOUT ADVERSE [id number] NOTED TO AN ENDOTRACHEAL TUBE #8.0 SECURED AT 25cm TEETH/GUM LINE WITH AN ANCHOR FAST
--- NOTE | 2021-04-04 07:18 | NUR ---
CUFF PRESSURE CHECKED NOTED AMBU BAG AT BEDSIDE SEDATED RESTING COMFORTABLY NO DISTRESS NOTED GOOD CHEST RISE AND AERATION THROUGHOUT BILATERAL LUNG PENALOZA AIRWAY PATENT
--- NOTE | 2021-04-04 07:30 | NUR ---
RECEIVED REPORT FROM ROSITA SZYMANSKI PT. IN IN BED HOB UP 30 DEGREE ETT TO VRNT ACPC 75% RATE 16 , GNG TUBE FEEDING AT 100ML/HR,IV FLUID HAS PICC LINE ON RT UPPER ARM INFUSING FENTANYL AT 15MCG/KF/HE
[2021-04-04] MEDS: DEXAMETHASONE 10 MG/ML VIAL IVP SCH (09:00)
[2021-04-04] MEDS: ENOXAPARIN 100 MG/ML SYR SUBQ SCH ×2 (09:00→20:27)
[2021-04-04] MEDS: METOPROLOL 25 MG TAB NG SCH ×2 (09:00→20:27)
[2021-04-04] MEDS: ACETAMINOPHEN 325 MG TAB PO PRN ×3 (09:00→20:26)
[2021-04-04] MEDS: PANTOPRAZOLE 40 MG INJ VIAL IVP SCH (09:00)
[2021-04-04] MEDS: DOCUSATE 100 MG/10 ML UDC GT SCH (09:00)
[2021-04-04] MEDS: INSULIN LANTUS 100 UNITS/ML 10 ML VIAL SUBQ SCH (09:00)
[2021-04-04] MEDS: BARICITINIB 2 MG TAB PO SCH (09:00)
--- NOTE | 2021-04-04 12:00 | NUR ---
TEMP 100.6 TYLENOL GIVEN ORDERED.
[2021-04-04] MEDS: INSULIN LISPRO SLIDING SCALE 100 UNITS/ML VIAL SUBQ PRN ×2 (12:33→19:00)
--- NOTE | 2021-04-04 19:30 | NUR ---
GIVE REPORT TO ROCÍO FOR CONTINUE CARE.
--- NOTE | 2021-04-04 19:31 | NUR ---
ASSUMED CARE OF PT.PT ON PRONE POSITION.PT SEDATED.FEBRILE.ST NOTED ON MONITOR.ETT TO VENT AC PC MODE FIO2 75% RATE 22 PEEP 14./ W/ GIL PICC LINE INTACT W/GOOD BLOOD RETURN TO BOTH PORTS INFUSING NS AT 60ML/HR, PRECEDEX 400MCG IN 96 ML NS AT 0.7 MCG/KG/HR, FENTANYL 1.5 MCG/KG/HR AND VERSED AT 4 MG/HR.W/NGT TO LT NARES INTACT. NGT CLAMPED FOR NOW.W/ARMENTA CATHETER TO BSD DRAINING SMALL AMT OF YELLOW URINE.W/ RECTAL TUBE ALSO ALREADY IN PLACE.W/GENERALIZED WEAKNESS ALSO NOTED.FLACC 0.CONTINUOUS COOLING MEASURES RENDERED.BED IN LOW POSITION.
--- NOTE | 2021-04-04 22:47 | NUR ---
PHONE CALL TO DR SEJAL MD MADE AWARE THAT PTS TEMP 102.7 AT THIS TIME; TYLENOL ALREADY GIVEN EARLIER THIS SHIFT, LAST BC,URINE AND SPUTUM CULTURE WAS 03/31, PER MD TO COLLECT AGAIN BC,URINE,SPUTUM AND STOOL C DIFF
--- NOTE | 2021-04-04 23:10 | NUR ---
BLOOD CULTURE TAKEN, URINE,SPUTUM CULTURES AND STOOL FOR C DIFF SPECIMEN SENT TO LAB.
[2021-04-04] MEDS ORDERED: PIPERACILLIN/TAZOBACTAM 3.375 GM VIAL IV ONE (23:34)
[2021-04-05] VITALS (28 sets, daily range): BP systolic 76–155; BP diastolic 45–111
[2021-04-05] MEDS ORDERED: PIPERACILLIN/TAZOBACTAM 3.375 GM in DEXTROSE 5% 50 ML IV SCH ×2
--- NOTE | 2021-04-05 | NUR ---
PT STILL FEBRILE.CONTINUOUS COOLING MEASURES RENDERED.TYLENOL GIVEN.STILL ON PRONE POSITION
[2021-04-05] MEDS: PIPERACILLIN/TAZOBACTAM 3.375 GM in DEXTROSE 5% 50 ML IV SCH ×4 (00:14→17:49)
[2021-04-05] MEDS: ALBUTEROL SULFATE/IPRATROPIU 3 ML SOL IH SCH ×4 (00:31→19:00)
[2021-04-05] MEDS: ACETAMINOPHEN 325 MG TAB PO PRN ×2 (02:29→15:44)
--- NOTE | 2021-04-05 02:59 | NUR ---
PTS CONDITION REMAINS UNCHANGED.STILL FEBRILE.ON COOLING BLANKET.WILL CONTINUE TO CLOSELY MONITOR PT
--- NOTE | 2021-04-05 05:00 | NUR ---
PTS POSITION CHANGED TO SUPINE W/RT AT BEDSIDE. MORNING CARE DONE.STILL FEBRILE; CONTINUOUS COOLING MEASURES DONE, TYLENOL NOT DUE YET.
--- NOTE | 2021-04-05 06:00 | NUR ---
PT STILL FEBRILE 102.1; CONTINUOUS COOLING MEASURES RENDERED.
[2021-04-05] MEDS: INSULIN LISPRO SLIDING SCALE 100 UNITS/ML VIAL SUBQ PRN ×2 (06:19→17:50)
[2021-04-05] MEDS: BLOOD GLUCOSE MONITORING 1 DEV DEV FS SCH ×4 (06:19→17:49)
[2021-04-05 06:21] LABS: EOSINOPHILS % (AUTO) 0.1 % (0.0-4.0); HEMATOCRIT 35.4 % (36-52); HEMOGLOBIN 11.9 g/dL (12.0-18.0); LYMPHOCYTES % (AUTO) 9.1 % (20.5-51.1); MEAN CORPUSCULAR HEMOGLOBIN 30 pg (27-31); MEAN CORPUSCULAR HGB CONC 34 g/dL (33-37); MEAN CORPUSCULAR VOLUME 89.4 fL (80-94); MONOCYTES # (AUTO) 0.2 K/uL (0.8-1.0); MONOCYTES % (AUTO) 1.7 % (1.7-9.3); NEUTROPHILS # (AUTO) 9.9 K/uL (1.8-7.7); NEUTROPHILS % (AUTO) 89.1 % (42.2-75.2); PLATELET COUNT (AUTO) 261 K/uL (140-450); RED BLOOD CELL COUNT(AUTO) 3.96 MIL/uL (4.20-6.10); RED CELL DISTRIBUTION WIDTH 13.8 % (11.6-13.7); WHITE BLOOD COUNT (AUTO) 11.1 K/uL (4.8-10.8)
[2021-04-05 06:53] LABS: ANION GAP 11.7 (8-16); CREATININE 0.7 mg/dL (0.6-1.3); POTASSIUM 4.7 mmol/L (3.5-5.1)
--- NOTE | 2021-04-05 07:13 | NUR ---
RECEIVED ON A [employer]opharmAPE R860 VENTILATOR PLUGGED INTO RED OUTLET TOLERATING WELL WITHOUT COMPLICATIONS NOTED TO AN ENDOTRACHEAL TUBE #8.0 SECURED AT 25cm TEETH/GUM LINE WITH AN ANCHOR FAST CUFF PRESSURE CHECKED NOTED AMBU BAG AT BEDSIDE SEDATED RESTING COMFORTABLE EQUAL CHEST RISE NO SUCTION REQUIRED AT THIS TIME AIRWAY PATENT
[2021-04-05] MEDS: BARICITINIB 2 MG TAB PO SCH (09:00)
--- NOTE | 2021-04-05 09:03 | NUR ---
REVIEWED WITH DR. LAWRENCE FUCHS PATIENT PULMONARY, VENTILATOR AND DIAGNOSTIC MONITORING STATUS VENTILATOR CHANGE: VORBO INCREASE RATE TO 26 BPM; INCREASE PEEP TO [id number]; ABG AFTER 1 HOUR
--- NOTE | 2021-04-05 09:05 | NUR ---
VENTILATOR CHANGES NOTED AT 902 TOLERATING WELL WITHOUT COMPLICATIONS NOTED
[2021-04-05] MEDS: DOCUSATE 100 MG/10 ML UDC GT SCH (09:42)
[2021-04-05] MEDS: DEXAMETHASONE 10 MG/ML VIAL IVP SCH (09:42)
[2021-04-05] MEDS: PANTOPRAZOLE 40 MG INJ VIAL IVP SCH (09:43)
[2021-04-05] MEDS: METOPROLOL 25 MG TAB NG SCH ×3 (09:45→21:25)
[2021-04-05] MEDS: ENOXAPARIN 100 MG/ML SYR SUBQ SCH ×2 (09:46→21:19)
[2021-04-05] MEDS: INSULIN LANTUS 100 UNITS/ML 10 ML VIAL SUBQ SCH (09:46)
[2021-04-05] MEDS: NACL 0.9% 1,000 ML IV SCH (09:56)
--- NOTE | 2021-04-05 10:19 | NUR ---
04/05/21 RD FOLLOW UP COMPLETED PLEASE REFER TO NUTRITION ASSESSMENT UNDER CARE ACTIVITY FOR ESTIMATED NUTRITIONAL NEEDS. 1. IF PT WILL BE ON TUBE FEEDING FOR 12 HOURS, RECOMMEND GLUCERNA 1.2 AT 100 ML/HR X 12 HOURS -THIS WILL PROVIDE 1440 KCAL AND 72 GM OF PROTEIN, ADEQUATE TO MEET >75% OF ESTIMATED KCAL AND PROTEIN NEEDS. 2. IF PT WILL BE ON CONTINOUS 24 HR FEEDING, CONTINUE WITH GLUCERNA 1.2 AT 60 ML/HR TOLERATED -FWF: 200 ML Q4H OR PER MD -PROVIDE 1440 ML TOTAL VOLUME, 1728 KCAL, AND 86 GM PROTEIN MEETING 92% EST KCAL NEEDS AND 100% EST PROTEIN NEEDS 3. RECOMMEND MICHAEL BID PER PROTOCOL 4. RD TO FOLLOW-UP 2-3 DAYS, HIGH RISK GAYATHRI ARAYA RD
--- NOTE | 2021-04-05 11:12 | NUR ---
CALLED DR. LAWRENCE FUCHS AT [facility] [phone] MAJOR TO PAGE FOREMENTIONED ABG RESULTS PATIENT INFORMATION AND CALL BACK NUMBER GIVEN
--- NOTE | 2021-04-05 11:25 | NUR ---
REVIEWED ABG SAMPLE REPORT PLACED ON APRV NOTED NAHEED/RN NOTIFIED
--- NOTE | 2021-04-05 11:25 | NUR ---
MODE CHANGED TO APRV P high [id number] P low OFF T high 5.00 T low 0.60; FIO2 100%
--- NOTE | 2021-04-05 12:00 | NUR ---
CALLED DR. LAWRENCE FUCHS AT [facility] [phone] KAYODE/EXCHANGE TO PAGE FOREMENTIONED MD PATIENT INFORMATION AND CALL BACK NUMBER GIVEN
--- NOTE | 2021-04-05 12:18 | NUR ---
CALL BACK FROM DR. LAWRENCE FUCHS REVIEWED ABG SAMPLE REPORT PC 16 R26 I/TIME 0.60 P18 100%; INDICATED TO MD AT 1125 CHANGED MODE TO APRV P high [id number] P low OFF T high 5.00 seconds T low 0.6 seconds FIO2 100%; SATURATION AT 1200 NOT IMPROVING MID TO HIGH 70'S; CONSENSUS WITH MD TO PRONE POSITION
--- NOTE | 2021-04-05 12:45 | NUR ---
PATIENT PLACED IN A PRONE POSITION AT THIS TIME TOLERATED TRANSFER WELL WITHOUT COMPLICATIONS NOTED SATURATION IMPROVING TO 85% ON FIO2 OF 100% Addendum: 04/05/21 at 1608 by Miles [place] RT T 1O1.4 ON COOLING BLANKET PER RN TYLENOL GIVEN AT AN EARLIER TIME
--- NOTE | 2021-04-05 14:41 | NUR ---
TOLERATING PRONE POSITION APRV MODE P high [id number] P low OFF T high 5.00 T low 0.6 FIO2 100% EQUAL CHEST RISE GOOD AERATION THROUGHOUT BILATERAL LUNG PENALOZA AIRWAY PATENT
--- NOTE | 2021-04-05 15:30 | NUR ---
DR. FUCHS WAS CALL TO INFORM PT. CONDITION. HE ORDERED PT TO BE ONPRONE P[OSITIO FOR 18 HR AMD ON SUPINE FOR 6HR GIVE IV FLUID DURING ON PRONE POSITIO AND NG TUBE FEEDING DURING ON SUPINE.
--- NOTE | 2021-04-05 19:20 | NUR ---
PT ON PRONE POSITION, REPORT GIVE TP DICAPRIO FOR CONTINUE CARE.
[2021-04-05] MEDS: DEXMEDETOMIDINE HCL 400 MCG in NACL 0.9% 96 ML IV PRN (22:29)
[2021-04-06] VITALS (25 sets, daily range): BP systolic 95–181; BP diastolic 52–99
[2021-04-06] MEDS: PIPERACILLIN/TAZOBACTAM 3.375 GM in DEXTROSE 5% 50 ML IV SCH ×5 (00:07→23:57)
[2021-04-06] MEDS: BLOOD GLUCOSE MONITORING 1 DEV DEV FS SCH ×5 (00:07→23:56)
[2021-04-06] MEDS: NACL 0.9% 1,000 ML IV SCH ×2 (00:08→18:00)
[2021-04-06] MEDS: INSULIN LISPRO SLIDING SCALE 100 UNITS/ML VIAL SUBQ PRN ×5 (00:10→23:59)
[2021-04-06] MEDS: ALBUTEROL SULFATE/IPRATROPIU 3 ML SOL IH SCH ×4 (01:00→19:50)
[2021-04-06] MEDS: DEXMEDETOMIDINE HCL 400 MCG in NACL 0.9% 96 ML IV PRN ×3 (03:42→21:22)
--- NOTE | 2021-04-06 06:35 | NUR ---
patient still in prono will be supined at 0800 am vitals signs in normal limits SR 78 on tele not signs of pain //DiCaprio RN
[2021-04-06 07:30] LABS: ANION GAP 9.8 (8-16); CARBON DIOXIDE 29.8 mmol/L (21-32); CREATININE 1.4 mg/dL (0.6-1.3); POTASSIUM 5.6 mmol/L (3.5-5.1); TOTAL BILIRUBIN 0.3 mg/dL (0.0-1.0)
--- NOTE | 2021-04-06 07:30 | NUR ---
RECEIVED REPORT FROM NITIN SZYMANSKI.
[2021-04-06 07:50] LABS: ALBUMIN 1.2 g/dL (3.4-5.0)
--- NOTE | 2021-04-06 08:00 | NUR ---
SD SUPINED AT 0800 AM WITH NO ACUTE EVENTS. ETT RETAPED AND SECURED AT 25 CM MIDLINE. SX SMALL NIETO SECRETIONS. PT BREATHSOUNDS EQUAL BILAT WITH STABLE VITALS OF 97%. PT WILL BE PRONED AGAIN AT 1400 PM. WILL CONTINUE TO MONITOR.
--- NOTE | 2021-04-06 08:30 | NUR ---
PATIENT REPOSITIONED FROM PRONE TO SUPINE WITH RT ASSISTANCE. PATIENT TOLERATED WELL.
--- NOTE | 2021-04-06 08:45 | NUR ---
PATIENT SEDATED. PUPILS 3MM AND SLOW TO REACT. DOES NOT FOLLOW COMMANDS. ETT TO VENT ON APRV MODE FIO2 90%. ANTERIOR/LATERAL BREATH SOUNDS COARSE AT BILATERAL BASES. NGT IN PLACE. GLUCERNA 1.2 RESTARTED AT 100CC/HR. HYPOACTIVE BOWEL SOUNDS WITH SOFT ABDOMEN. RECTAL BAG IN PLACE WITH LIQUID BROWN STOOL ARMENTA IN PLACE WITH CLEAR YELLOW URINE. GIL PICC WITH NS AT 30ML/HR. PRECEDEX 0.7MCG/KG/HR, VERSED 1MG/HR, FENTANYL 1.5MCG/KG/HR.
[2021-04-06] MEDS: DEXAMETHASONE 10 MG/ML VIAL IVP SCH (08:46)
[2021-04-06] MEDS: BARICITINIB 2 MG TAB PO SCH (08:47)
[2021-04-06] MEDS: ENOXAPARIN 100 MG/ML SYR SUBQ SCH ×2 (08:47→21:20)
[2021-04-06] MEDS: PANTOPRAZOLE 40 MG INJ VIAL IVP SCH (08:47)
[2021-04-06] MEDS: METOPROLOL 25 MG TAB NG SCH ×2 (09:00→21:20)
[2021-04-06] MEDS: INSULIN LANTUS 100 UNITS/ML 10 ML VIAL SUBQ SCH (09:32)
[2021-04-06] MEDS: DOCUSATE 100 MG/10 ML UDC GT SCH (09:33)
[2021-04-06] MEDS ORDERED: SODIUM ZIRCONIUM CYCLOSILICATE 10 GM POWD.PACK NG SCH (10:30)
--- NOTE | 2021-04-06 11:30 | NUR ---
DR FUCHS IN TO SEE PATIENT. DECREASED FIO2 TO 65%. STATED IF SAO2 REMAINS >90 CONTINUE TO WEAN FIO2 AND DO NOT PRONE PATIENT.
[2021-04-06 11:51] LABS: BASOPHILS % (AUTO) 0.2 % (0.0-2.0); HEMATOCRIT 29.6 % (36-52); HEMOGLOBIN 9.7 g/dL (12.0-18.0); LYMPHOCYTES # (AUTO) 0.5 K/uL (2.0-11.5); LYMPHOCYTES % (AUTO) 13.7 % (20.5-51.1); MEAN CORPUSCULAR HEMOGLOBIN 30 pg (27-31); MEAN CORPUSCULAR HGB CONC 33 g/dL (33-37); MEAN CORPUSCULAR VOLUME 92.7 fL (80-94); MONOCYTES # (AUTO) 0.2 K/uL (0.8-1.0); MONOCYTES % (AUTO) 4.3 % (1.7-9.3); NEUTROPHILS # (AUTO) 3.1 K/uL (1.8-7.7); NEUTROPHILS % (AUTO) 81.8 % (42.2-75.2); PLATELET COUNT (AUTO) 199 K/uL (140-450); RED BLOOD CELL COUNT(AUTO) 3.19 MIL/uL (4.20-6.10); RED CELL DISTRIBUTION WIDTH 14.8 % (11.6-13.7)
[2021-04-06 12:22] LABS: WHITE BLOOD COUNT (AUTO) 3.8 K/uL (4.8-10.8)
--- NOTE | 2021-04-06 19:06 | NUR ---
PATIENT STABLE VITALS SIGNS IN NORMAL LIMITS SR ON MONITOR WE DECREASE THE FIO2 TO 65 //DiCaprio RN
--- NOTE | 2021-04-06 19:12 | NUR ---
REPORT GIVE TO NIGHT RN.
--- NOTE | 2021-04-06 19:14 | NUR ---
PATIENT STABLE SEDATED AT THIS TIME VITALS SIGNS IN NORMAL LIMITS SR ON MONITOR
[2021-04-07] VITALS (30 sets, daily range): BP systolic 98–183; BP diastolic 53–112
[2021-04-07] MEDS: ALBUTEROL SULFATE/IPRATROPIU 3 ML SOL IH SCH ×4 (00:03→19:54)
[2021-04-07] MEDS: METOPROLOL 5 MG/5 ML VIAL IV PRN (00:57)
[2021-04-07] MEDS ORDERED: DEXMEDETOMIDINE HCL 100 MCG/ML 2 ML VIAL IV ONE (02:02)
[2021-04-07] MEDS: MIDAZOLAM MDV 100 MG in NACL 0.9% 80 ML IV PRN ×2 (02:11→20:42)
[2021-04-07] MEDS: DEXMEDETOMIDINE HCL 400 MCG in NACL 0.9% 96 ML IV PRN ×2 (02:12→20:43)
[2021-04-07] MEDS: fentaNYL citrate - 50mL vial 2.5 MG in NACL 0.9% 200 ML IV PRN (04:29)
[2021-04-07] MEDS: PIPERACILLIN/TAZOBACTAM 3.375 GM in DEXTROSE 5% 50 ML IV SCH ×3 (05:46→18:27)
[2021-04-07] MEDS: BLOOD GLUCOSE MONITORING 1 DEV DEV FS SCH ×4 (05:46→18:23)
--- NOTE | 2021-04-07 06:37 | NUR ---
PATIENT STABLE VITALS SIGNS IN NORMAL LIMITS NO SIGNS OF PAIN GOOD OUTPUT SR 78 ON MONITOR //DiCaprio RN
[2021-04-07 06:43] LABS: BASOPHILS % (AUTO) 0.1 % (0.0-2.0); EOSINOPHILS % (AUTO) 0.1 % (0.0-4.0); HEMATOCRIT 29.2 % (36-52); HEMOGLOBIN 9.7 g/dL (12.0-18.0); LYMPHOCYTES # (AUTO) 0.4 K/uL (2.0-11.5); LYMPHOCYTES % (AUTO) 6.5 % (20.5-51.1); MEAN CORPUSCULAR HEMOGLOBIN 30 pg (27-31); MEAN CORPUSCULAR HGB CONC 33 g/dL (33-37); MEAN CORPUSCULAR VOLUME 91.6 fL (80-94); MONOCYTES # (AUTO) 0.3 K/uL (0.8-1.0); MONOCYTES % (AUTO) 4.5 % (1.7-9.3); NEUTROPHILS # (AUTO) 5.5 K/uL (1.8-7.7); NEUTROPHILS % (AUTO) 88.8 % (42.2-75.2); PLATELET COUNT (AUTO) 256 K/uL (140-450); RED BLOOD CELL COUNT(AUTO) 3.18 MIL/uL (4.20-6.10); RED CELL DISTRIBUTION WIDTH 14.4 % (11.6-13.7); WHITE BLOOD COUNT (AUTO) 6.2 K/uL (4.8-10.8)
--- NOTE | 2021-04-07 07:30 | NUR ---
RECEIVED REPORT FROM NITIN SZYMANSKI.
[2021-04-07 08:06] LABS: ANION GAP 10.4 (8-16); CARBON DIOXIDE 28.7 mmol/L (21-32); CREATININE 0.6 mg/dL (0.6-1.3); POTASSIUM 4.1 mmol/L (3.5-5.1)
--- NOTE | 2021-04-07 08:15 | NUR ---
PATIENT SEDATED. OPENS EYES SPONTANEOUSLY. DOES NOT FOLLOW COMMANDS. DOES NOT RESPOND TO PAINFUL STIMULI. PUPILS 2MM AND SLOW TO REACT. GIL PICC LINE IN PLACE. FENTANYL AT 2.5MCG/KG/HR, PRECEDEX 0.7MCG/KG/HR, VERSED 4MG/HR. ETT TO VENT APRV MODE FIO2 .65 SAO2 92%. ANTERIOR/LATERAL BREATH SOUNDS COARSE BILATERALLY. NGT IN PLACE WITH 50CC RISIDUAL. GLUCERNA INFUSING AT 100CC/HR. HYPERACTIVE BOWEL SOUNDS. RECTAL BAG IN PLACE WITH LIQUID BROWN STOOL. ARMENTA WITH YELLOW URINE. CALLED AND GIVEN UPDATE.
[2021-04-07] MEDS: PANTOPRAZOLE 40 MG INJ VIAL IVP SCH (08:51)
[2021-04-07] MEDS: DOCUSATE 100 MG/10 ML UDC GT SCH (08:51)
[2021-04-07] MEDS: DEXAMETHASONE 10 MG/ML VIAL IVP SCH (08:51)
[2021-04-07] MEDS: ENOXAPARIN 100 MG/ML SYR SUBQ SCH ×2 (08:52→20:30)
[2021-04-07] MEDS: METOPROLOL 25 MG TAB NG SCH ×2 (08:53→20:30)
[2021-04-07] MEDS: INSULIN LANTUS 100 UNITS/ML 10 ML VIAL SUBQ SCH (08:55)
--- NOTE | 2021-04-07 09:45 | NUR ---
PATIENT SAO2 DECREASED TO 82%. SUCTIONED SMALL AMOUNT OF NIETO SECRETIONS. RT CALLED AND FIO2 INCREASED TO 70%. PRECEDEX INCREASED TO 1MCG/KG/HR. FENTANYL AT 3MG/HR, VERSED AT 1.5MCG/KG/HR.
--- NOTE | 2021-04-07 10:00 | NUR ---
SAO2 IMPROVED TO 93%.
[2021-04-07] MEDS: NACL 0.9% 1,000 ML IV SCH (11:56)
--- NOTE | 2021-04-07 13:00 | NUR ---
FIO2 ABLE TO BE WEANED TO 60% WITH SAO2 MAINTAINING 92-95%.
[2021-04-07] MEDS: INSULIN LISPRO SLIDING SCALE 100 UNITS/ML VIAL SUBQ PRN ×2 (13:25→18:26)
--- NOTE | 2021-04-07 19:20 | NUR ---
REPORT GIVEN TO NITIN RNVAIBHAV.
--- NOTE | 2021-04-07 19:30 | NUR ---
RECEIVED REPORT FROM NESSA JUNE.INITIAL ASSESSMENT DONE.PT SEDATED.AFEBRILE.SR NOTED ON MONITOR.ETT TO VENT APRV MODE FIO2 60%. W/ GIL PICC LINE INTACT NO BLOOD RETURN TO BOTH PORTS INFUSING NS AT 10ML/HR, PRECEDEX 400MCG IN 96 ML NS AT 1 MCG/KG/HR, FENTANYL 1.5 MCG/KG/HR AND VERSED AT 3 MG/HR.W/NGT TO LT NARES INTACT.130ML RESIDUALS, ON CONTINUOUS FEEDING GLUCERNA 1.2 AT 100ML/HR W/ WATER FLUSH ORDERED .W/ARMENTA CATHETER TO BSD DRAINING SMALL AMT OF YELLOW URINE.W/ RECTAL TUBE ALSO ALREADY IN PLACE.SMALL AMT OF BROWNISH LIQUID STOOL NOTED.W/GENERALIZED WEAKNESS ALSO NOTED.FLACC 0.AFEBRILE AT THIS TIME.REPOSITIONED.
--- NOTE | 2021-04-07 20:00 | NUR ---
ORAL CARE USING VAP KIT RENDERED.PT ON PROTONIX FOR GI PROPHYLAXIS AND LOVENOX FOR DVT PROPHYLAXIS.REPOSITIONED.FLACC 0
[2021-04-08] VITALS (27 sets, daily range): BP systolic 85–174; BP diastolic 49–99
--- NOTE | 2021-04-08 | NUR ---
TEMP 100.4; TYLENOL ADMINISTERED ORDERED.CONTINUOUS COOLING MEASURES RENDERED.WILL CONTINUE TO CLOSELY MONITOR PT
[2021-04-08] MEDS: DEXMEDETOMIDINE HCL 400 MCG in NACL 0.9% 96 ML IV PRN ×3 (00:01→22:53)
[2021-04-08] MEDS: INSULIN LISPRO SLIDING SCALE 100 UNITS/ML VIAL SUBQ PRN ×3 (00:02→17:51)
[2021-04-08] MEDS: ALBUTEROL SULFATE/IPRATROPIU 3 ML SOL IH SCH ×4 (00:26→21:11)
[2021-04-08] MEDS: ACETAMINOPHEN 325 MG TAB PO PRN (00:30)
--- NOTE | 2021-04-08 03:00 | NUR ---
PT 02 SATURATION 70'S, CALLED RT.RT LUZ AT BEDSIDE.PT SUCTIONED, FIO2 INCREASED TO 65%, STILL ON APRV MODE
--- NOTE | 2021-04-08 04:30 | NUR ---
MORNING CARE DONE.ORAL CARE RENDERED.FLACC 0
[2021-04-08] MEDS: PIPERACILLIN/TAZOBACTAM 3.375 GM in DEXTROSE 5% 50 ML IV SCH ×6 (06:20→23:42)
[2021-04-08] MEDS: BLOOD GLUCOSE MONITORING 1 DEV DEV FS SCH ×4 (06:20→17:49)
--- NOTE | 2021-04-08 07:03 | NUR ---
REPORT GIVEN TO ABRIL SZYMANSKI FOR CONTINUITY OF CARE
--- NOTE | 2021-04-08 07:30 | NUR ---
RECEIVED REPORT FROM AIRWORTHINESS INSPECTOR RN.
--- NOTE | 2021-04-08 08:30 | NUR ---
PATIENT SEDATED. OPENS EYES DOES NOT FOLLOW COMMANDS. PUPILS 3MM AND REACTIVE TO LIGHT. GIL PICC LINE WITH NS AT 5ML/HR, VERSE 3MG/HR, PRECEDEX AT 1MCG/KG/HR, FENTANYL 1.5MCG/KG/HR. ETT TO VENT ON APRV MODE AT .65 FIO2. SAO2 91%. SUCTIONED SMALL AMOUNT WHITE/NIETO SECRETIONS. HYPOACTIVE BOWEL SOUNDS. NGT IN PLACE WITH GLUCERNA AT 100ML/HR. RISIDUAL 200CC OF TF. PLACED TF ON HOLD. RECTAL BAG IN PLACE WITH LIQUID BROWN STOOL. ARMENTA IN PLACE WITH YELLOW URINE. CALLED AND UPDATE GIVEN.
[2021-04-08] MEDS: METOPROLOL 25 MG TAB NG SCH ×2 (08:46→21:37)
[2021-04-08] MEDS: DOCUSATE 100 MG/10 ML UDC GT SCH (08:46)
[2021-04-08] MEDS: PANTOPRAZOLE 40 MG INJ VIAL IVP SCH (08:46)
[2021-04-08] MEDS: DEXAMETHASONE 10 MG/ML VIAL IVP SCH (08:46)
[2021-04-08] MEDS: ENOXAPARIN 100 MG/ML SYR SUBQ SCH ×2 (08:47→21:37)
[2021-04-08] MEDS: INSULIN LANTUS 100 UNITS/ML 10 ML VIAL SUBQ SCH (09:38)
--- NOTE | 2021-04-08 10:00 | NUR ---
PROP MAKER CALLED AND DISCUSSED RISIDUAL AND TF RATE. RECOMMENDED TO DECREASE TO 60CCHR AND 200H20 EVERY 4HR.
--- NOTE | 2021-04-08 11:00 | NUR ---
04/08/21 RD FOLLOW UP COMPLETED PLEASE REFER TO NUTRITION ASSESSMENT UNDER CARE ACTIVITY FOR ESTIMATED NUTRITIONAL NEEDS. 1. RECOMMEND GLUCERNA 1.2 @ 60 ML/HR TOLERATED D/T PT BACK ON 24 HR CONTINUOUS FEEDING -FWF: 200 ML Q4H OR PER MD -WILL PROVIDE 1728 KCAL AND 86 GM PROTEIN, MEETING 92% EST KCAL NEEDS AND 100% EST PROTEIN NEEDS 2. IF PT WILL BE ON TUBE FEEDING FOR 12 HOURS, RECOMMEND GLUCERNA 1.2 AT 100 ML/HR X 12 HOURS -THIS WILL PROVIDE 1440 KCAL AND 72 GM OF PROTEIN, ADEQUATE TO MEET >75% OF ESTIMATED KCAL AND PROTEIN NEEDS 3. CONTINUE MICHAEL BID PER PROTOCOL 4. MONITOR GI SYMPTOMS AND GASTRIC RESIDUALS 5. RD TO FOLLOW-UP 2-3 DAYS, HIGH RISK GAYATHRI ARAYA RD
--- NOTE | 2021-04-08 12:00 | NUR ---
RISIDUAL 20CC. TF RESTARTED AT 60CC/HR PER VERBAL ORDER.
[2021-04-08] MEDS: NACL 0.9% 1,000 ML IV SCH ×3 (14:00→21:37)
--- NOTE | 2021-04-08 16:00 | NUR ---
TF RISIDUAL 200CC. TF PLACED BACK ON HOLD.
--- NOTE | 2021-04-08 19:03 | NUR ---
REPORT GIVEN TO NITIN RNVAIBHAV.
--- NOTE | 2021-04-08 19:30 | NUR ---
ASSUMED CARE OF PT.INITIAL ASSESSMENT COMPLETED.AFEBRILE.SB NOTED ON MONITOR.ETT TO VENT APRV MODE FIO2 70%. PT SEDATED.W/ GIL PICC LINE INTACT NO BLOOD RETURN TO BOTH PORTS INFUSING NS AT 20ML/HR, PRECEDEX 400MCG IN 96 ML NS AT 1 MCG/KG/HR, FENTANYL 1.5 MCG/KG/HR AND VERSED AT 3 MG/HR.W/NGT TO LT NARES INTACT.W/50ML RESIDUALS, ON CONTINUOUS FEEDING GLUCERNA 1.2 AT 60 ML/HR W/ WATER FLUSH ORDERED .W/ARMENTA CATHETER TO BSD DRAINING SMALL AMT OF YELLOW URINE.W/ RECTAL TUBE ALSO ALREADY IN PLACE,LEAKING,PT CLEANED.SMALL AMT OF BROWNISH LIQUID STOOL NOTED.W/GENERALIZED WEAKNESS ALSO NOTED.FLACC 0.REPOSITIONED.
--- NOTE | 2021-04-08 20:30 | NUR ---
ORAL CARE GIVEN.SB/SR NOTED ON MONITOR.FLACC 0
[2021-04-09] VITALS (27 sets, daily range): BP systolic 102–182; BP diastolic 51–101
--- NOTE | 2021-04-09 | NUR ---
ORAL CARE DONE.FLACC 0.REPOSITIONED.AFEBRILE
[2021-04-09] MEDS: ALBUTEROL SULFATE/IPRATROPIU 3 ML SOL IH SCH ×3 (01:31→20:30)
[2021-04-09] MEDS: DEXMEDETOMIDINE HCL 400 MCG in NACL 0.9% 96 ML IV PRN ×3 (02:05→20:00)
[2021-04-09] MEDS: fentaNYL citrate - 50mL vial 2.5 MG in NACL 0.9% 200 ML IV PRN (02:06)
--- NOTE | 2021-04-09 05:00 | NUR ---
MORNING CARE DONE,RECTAL TUBE REPLACED,BALLOON LEAKING,PT REPOSITIONED.FLACC 0
[2021-04-09] MEDS: PIPERACILLIN/TAZOBACTAM 3.375 GM in DEXTROSE 5% 50 ML IV SCH ×2 (05:29→18:54)
[2021-04-09] MEDS: INSULIN LISPRO SLIDING SCALE 100 UNITS/ML VIAL SUBQ PRN ×3 (05:38→18:56)
[2021-04-09] MEDS: BLOOD GLUCOSE MONITORING 1 DEV DEV FS SCH ×4 (05:38→18:54)
[2021-04-09] MEDS ORDERED: DEXMEDETOMIDINE HCL 100 MCG/ML 2 ML VIAL IV ONE (05:39)
[2021-04-09 06:14] LABS: ALBUMIN 1.5 g/dL (3.4-5.0); ANION GAP 10.4 (8-16); CARBON DIOXIDE 30.5 mmol/L (21-32); CREATININE 0.7 mg/dL (0.6-1.3); POTASSIUM 4.9 mmol/L (3.5-5.1); TOTAL BILIRUBIN 0.3 mg/dL (0.0-1.0)
[2021-04-09 06:39] LABS: BASOPHILS % (AUTO) 0.1 % (0.0-2.0); EOSINOPHILS % (AUTO) 0.1 % (0.0-4.0); HEMOGLOBIN 10.2 g/dL (12.0-18.0); LYMPHOCYTES # (AUTO) 0.6 K/uL (2.0-11.5); LYMPHOCYTES % (AUTO) 3.7 % (20.5-51.1); MEAN CORPUSCULAR HEMOGLOBIN 30 pg (27-31); MEAN CORPUSCULAR HGB CONC 33 g/dL (33-37); MEAN CORPUSCULAR VOLUME 90.7 fL (80-94); MONOCYTES # (AUTO) 0.3 K/uL (0.8-1.0); NEUTROPHILS # (AUTO) 14.8 K/uL (1.8-7.7); NEUTROPHILS % (AUTO) 94.1 % (42.2-75.2); PLATELET COUNT (AUTO) 378 K/uL (140-450); RED BLOOD CELL COUNT(AUTO) 3.41 MIL/uL (4.20-6.10); RED CELL DISTRIBUTION WIDTH 14.6 % (11.6-13.7); WHITE BLOOD COUNT (AUTO) 15.7 K/uL (4.8-10.8)
--- NOTE | 2021-04-09 07:20 | NUR ---
RECEIVED REPORT FROM ROCÍO SZYAMNSKI, PT IN BED WITH HOB UP 30 DEGREE. IV FLUID RT UPPER ARM PICC LINE IN FUSSING FENTANYL 1.5 MCG/KG/HR, PRECEDEX 1MCG/KG/HR VERCED 3 MCG/HR. NS KVO NGT 60ML/HR F/C DRAIN CLEAR BRIANNA URINE.REDTAL BAG HAS DARKGREEN THICK LIQUID BM.
--- NOTE | 2021-04-09 07:50 | NUR ---
RECEIVED ON A [employer] R860 VENTILATOR PLUGGED INTO RED OUTLET TOLERATING WELL WITHOUT ADVERSE REACTIONS NOTED TO AN ENDOTRACHEAL TUBE #8.0 SECURED AT 25cm TEETH.GUM LINE WITH AN ANCHOR FAST CUFF PRESSURE CHECKED NOTED AMBU BAG AT BEDSIDE SEDATED RESTING COMFORTABLY EQUAL CHEST RISE GOOD AERATION THROUGHOUT BILATERAL LUNG PENALOZA AIRWAY PATENT SATURATION 96% ON FIO2 OF 70% POST HHN THERAPY TITRATED FIO2 TO 65% NAHEED/NESSA NOTIFIED Addendum: 04/09/21 at 0858 by Miles Camarillo RT ENDOTRACHEAL TUBE SECURED WITH BLUE TAPE INSTEAD OF AN ANCHOR FAST
[2021-04-09] MEDS: PANTOPRAZOLE 40 MG INJ VIAL IVP SCH (08:27)
[2021-04-09] MEDS: DOCUSATE 100 MG/10 ML UDC GT SCH (08:27)
[2021-04-09] MEDS: DEXAMETHASONE 10 MG/ML VIAL IVP SCH (08:27)
[2021-04-09] MEDS: METOPROLOL 25 MG TAB NG SCH ×2 (08:28→20:47)
[2021-04-09] MEDS: INSULIN LANTUS 100 UNITS/ML 10 ML VIAL SUBQ SCH (08:30)
[2021-04-09] MEDS: ENOXAPARIN 100 MG/ML SYR SUBQ SCH ×2 (08:31→20:48)
[2021-04-09] MEDS: ACETAMINOPHEN 325 MG TAB PO PRN ×2 (10:00→16:43)
--- NOTE | 2021-04-09 10:00 | NUR ---
seen by dr. isaacs at bed side, order for lab work received.
--- NOTE | 2021-04-09 10:00 | NUR ---
TEMP 100.6 TYLENOL GIVEN ORDER.
--- NOTE | 2021-04-09 11:33 | NUR ---
STABLE NO DISTRESS NOTED EQUAL CHEST RISE ENDOTRACHEAL SUCTION FOR SMALL THIN HAZY YELLOW SECRETIONS AIRWAY PATENT ENDOTRACHEAL TUBE RE-TAPED TO LEFT SIDE AT 25cm TEETH/GUM LINE
--- NOTE | 2021-04-09 13:50 | NUR ---
SEDATED STABLE EQUAL CHEST RISE NO DISTRESS NOTED GOOD AERATION THROUGHOUT BILATERAL LUNG PENALOZA AIRWAY PATENT SATURATION 94% ON FIO2 OF 65% POST HHN THERAPY TITRATED FIO2 TO 60% NAHEED/RN NOTIFIED
--- NOTE | 2021-04-09 16:00 | NUR ---
TEMP 101 , TYLENOL GIVEN ORDER,
--- NOTE | 2021-04-09 17:25 | NUR ---
SEDATED EQUAL CHEST RISE ENDOTRACHEAL SUCTION FOR MODERATE THIN YELLOW SECRETIONS AIRWAY PATENT
--- NOTE | 2021-04-09 18:00 | NUR ---
BL. GLUCOSE 264 INSULIN COVER ORDERED.
--- NOTE | 2021-04-09 19:30 | NUR ---
REPORT GIVE TO ROCÍO FOR CONTINUE CARE,
--- NOTE | 2021-04-09 19:31 | NUR ---
ASSUMED CARE OF PT.INITIAL ASSESSMENT COMPLETED.PT SEDATED; OPENS EYES NOT TRACKING.SR ON MONITOR.ETT TO VENT APRV MODE FIO2 60%.W/ GIL PICC LINE INTACT GOOD BLOOD RETURN TO BOTH PORTS INFUSING NS AT 5ML/HR, PRECEDEX 400MCG IN 96 ML NS AT 1 MCG/KG/HR, FENTANYL 1.5 MCG/KG/HR AND VERSED AT 3 MG/HR.W/NGT TO LT NARES INTACT.W/10 ML RESIDUALS, ON CONTINUOUS FEEDING GLUCERNA 1.2 AT 60 ML/HR W/ WATER FLUSH ORDERED .W/ARMENTA CATHETER TO BSD DRAINING ADEQUATE AMT OF YELLOW URINE.W/ RECTAL TUBE ALREADY IN PLACE,SMALL AMT OF BROWNISH LIQUID STOOL NOTED.W/GENERALIZED WEAKNESS TO ALL EXTREMITIES.FLACC 0.
--- NOTE | 2021-04-09 20:51 | NUR ---
WITH RT AT BEDSIDE, PT REPOSITIONED.ORAL CARE DONE,PT ON DAILY PROTONIX FOR GI PROPHYLAXIS AND LOVENOX FOR DVT PROPHYLAXIS.
[2021-04-10] VITALS (24 sets, daily range): BP systolic 103–166; BP diastolic 55–88
--- NOTE | 2021-04-10 | NUR ---
ORAL CARE DONE.REPOSITIONED.NO 10ML RESIDUALS NOTED; CONTINUED ON NGT FEEDING ORDERED
[2021-04-10] MEDS: ALBUTEROL SULFATE/IPRATROPIU 3 ML SOL IH SCH ×4 (00:05→19:24)
[2021-04-10] MEDS: INSULIN LISPRO SLIDING SCALE 100 UNITS/ML VIAL SUBQ PRN ×4 (00:15→18:58)
[2021-04-10] MEDS: BLOOD GLUCOSE MONITORING 1 DEV DEV FS SCH ×4 (00:15→18:57)
[2021-04-10] MEDS: PIPERACILLIN/TAZOBACTAM 3.375 GM in DEXTROSE 5% 50 ML IV SCH ×4 (00:15→18:37)
--- NOTE | 2021-04-10 04:00 | NUR ---
MORNING CARE DONE.ORAL CARE RENDERED.AFEBRILE.REPOSITIONED.FLACC 0
[2021-04-10] MEDS ORDERED: DEXMEDETOMIDINE HCL 100 MCG/ML 2 ML VIAL IV ONE (04:09)
[2021-04-10] MEDS: DEXMEDETOMIDINE HCL 400 MCG in NACL 0.9% 96 ML IV PRN ×2 (04:16→21:00)
[2021-04-10 06:33] LABS: BASOPHILS % (AUTO) 0.1 % (0.0-2.0); EOSINOPHILS % (AUTO) 0.1 % (0.0-4.0); HEMATOCRIT 29.9 % (36-52); HEMOGLOBIN 9.6 g/dL (12.0-18.0); LYMPHOCYTES # (AUTO) 0.7 K/uL (2.0-11.5); MEAN CORPUSCULAR HEMOGLOBIN 30 pg (27-31); MEAN CORPUSCULAR HGB CONC 32 g/dL (33-37); MONOCYTES # (AUTO) 0.3 K/uL (0.8-1.0); MONOCYTES % (AUTO) 2.4 % (1.7-9.3); NEUTROPHILS # (AUTO) 13.3 K/uL (1.8-7.7); PLATELET COUNT (AUTO) 400 K/uL (140-450); RED BLOOD CELL COUNT(AUTO) 3.25 MIL/uL (4.20-6.10); RED CELL DISTRIBUTION WIDTH 14.7 % (11.6-13.7); WHITE BLOOD COUNT (AUTO) 14.4 K/uL (4.8-10.8)
[2021-04-10 06:59] LABS: LYMPHOCYTES % (AUTO) 4.8 % (20.5-51.1); NEUTROPHILS % (AUTO) 92.6 % (42.2-75.2)
[2021-04-10 07:01] LABS: ALBUMIN 1.4 g/dL (3.4-5.0); ANION GAP 9.3 (8-16); CARBON DIOXIDE 32.9 mmol/L (21-32); CREATININE 0.8 mg/dL (0.6-1.3); POTASSIUM 5.2 mmol/L (3.5-5.1); TOTAL BILIRUBIN 0.2 mg/dL (0.0-1.0)
[2021-04-10] MEDS: DEXAMETHASONE 10 MG/ML VIAL IVP SCH (09:00)
[2021-04-10] MEDS: METOPROLOL 25 MG TAB NG SCH ×2 (09:00→21:19)
[2021-04-10] MEDS: DOCUSATE 100 MG/10 ML UDC GT SCH (09:00)
[2021-04-10] MEDS: INSULIN LANTUS 100 UNITS/ML 10 ML VIAL SUBQ SCH (09:00)
[2021-04-10] MEDS: ENOXAPARIN 100 MG/ML SYR SUBQ SCH ×2 (09:00→21:18)
[2021-04-10] MEDS: PANTOPRAZOLE 40 MG INJ VIAL IVP SCH (09:00)
--- NOTE | 2021-04-10 09:50 | NUR ---
SEEN BY DR. ARAYA AT BEDSIDE AND WILL CHANGE THE ET TUBE DUE TO THE LEAKING OF THE TUBE.
--- NOTE | 2021-04-10 09:57 | NUR ---
ET TUBE WAS CHANGED BY DR. ARAYA THE ET TUBE SIZE IS 7.5 IT'S FUNCTION WELL. WILL HAVE DOC X -RAY TO CONFIRM.
--- NOTE | 2021-04-10 09:57 | NUR ---
ETT COUGH HAD LEAK THAT REQUIRED REINTUBATION. DR ARAYA AT BEDSIDE AND REINTUBATED WITH 8.0 @ 27 TEETH SECURED WITH TAPE. PT REMAINS ON APRV SETTINGS AND SPO2 AT 96% ON 100% FIO2. WILL TITRATE FIO2. PT STABLE NO AUDIBLE LEAK. WILL CONTINUE TO MONITOR.
--- NOTE | 2021-04-10 10:10 | NUR ---
DOC X-RAY DONE.
--- NOTE | 2021-04-10 12:00 | NUR ---
TYLENOL GAVE FOR ELEVATED BODY TEMP.
[2021-04-10] MEDS: NACL 0.9% 1,000 ML IV SCH (13:40)
--- NOTE | 2021-04-10 16:00 | NUR ---
REPOSITION ORAL CARE AND SKIN CARE GIVEN
--- NOTE | 2021-04-10 18:00 | NUR ---
BL. SUGAR 237 INSULIN COVER ORDER.
--- NOTE | 2021-04-10 19:30 | NUR ---
REPORT GIVE TO ABDIAS FOR CONTINUE CARE.
--- NOTE | 2021-04-10 21:30 | NUR ---
patient demisedated able to opened his eyes stable SR 89 ON MONITOR Vitals signs in normal limits no signs of pain at this time //DiCaprio RN
--- NOTE | 2021-04-10 21:33 | NUR ---
ORAL CARE PROVIDE REPOSITION TO THE RIGHT SIDE SEEM COMFORTABLE //Breana SZYMANSKI
[2021-04-11] VITALS (27 sets, daily range): BP systolic 90–162; BP diastolic 52–92
[2021-04-11] MEDS: BLOOD GLUCOSE MONITORING 1 DEV DEV FS SCH ×4 (00:04→17:25)
[2021-04-11] MEDS: PIPERACILLIN/TAZOBACTAM 3.375 GM in DEXTROSE 5% 50 ML IV SCH ×4 (00:05→17:22)
[2021-04-11] MEDS: INSULIN LISPRO SLIDING SCALE 100 UNITS/ML VIAL SUBQ PRN ×3 (00:08→17:31)
[2021-04-11] MEDS: DEXMEDETOMIDINE HCL 400 MCG in NACL 0.9% 96 ML IV PRN ×5 (00:46→22:00)
[2021-04-11] MEDS: ALBUTEROL SULFATE/IPRATROPIU 3 ML SOL IH SCH ×4 (01:00→20:00)
--- NOTE | 2021-04-11 02:52 | NUR ---
PATIENT DEMISEDATED ABLE TO OPEN HIS EYES STABLE VITALS SIGNS IN NORMAL LIMITS TOLERATED VERY WELL HIS BATH AND ORAL CARE SR 72 ON MONITOR //DiCaprio RN
--- NOTE | 2021-04-11 05:32 | NUR ---
PATIENT SEDATE VITALS SIGNS IN NORMAL LIMITS SR ON MONITOR STABLE NOT SIGNS OF PAIN //DiCaprio RN
[2021-04-11 05:47] LABS: BASOPHILS % (AUTO) 0.2 % (0.0-2.0); EOSINOPHILS % (AUTO) 0.1 % (0.0-4.0); HEMATOCRIT 29.3 % (36-52); HEMOGLOBIN 9.5 g/dL (12.0-18.0); LYMPHOCYTES # (AUTO) 0.8 K/uL (2.0-11.5); LYMPHOCYTES % (AUTO) 6.6 % (20.5-51.1); MEAN CORPUSCULAR HEMOGLOBIN 30 pg (27-31); MEAN CORPUSCULAR HGB CONC 33 g/dL (33-37); MEAN CORPUSCULAR VOLUME 91.8 fL (80-94); MONOCYTES # (AUTO) 0.3 K/uL (0.8-1.0); MONOCYTES % (AUTO) 2.3 % (1.7-9.3); NEUTROPHILS # (AUTO) 10.5 K/uL (1.8-7.7); NEUTROPHILS % (AUTO) 90.8 % (42.2-75.2); PLATELET COUNT (AUTO) 409 K/uL (140-450); RED BLOOD CELL COUNT(AUTO) 3.19 MIL/uL (4.20-6.10); RED CELL DISTRIBUTION WIDTH 14.2 % (11.6-13.7); WHITE BLOOD COUNT (AUTO) 11.5 K/uL (4.8-10.8)
[2021-04-11 07:11] LABS: ALBUMIN 1.5 g/dL (3.4-5.0); CREATININE 0.6 mg/dL (0.6-1.3); TOTAL BILIRUBIN 0.3 mg/dL (0.0-1.0)
--- NOTE | 2021-04-11 07:25 | NUR ---
RECEIVED BEDSIDE REPORT FROM STUD SETTER NURSE FOR CONTINUITY OF CARE. PT SEDATED.SR ON MONITOR.ETT TO VENT APRV MODE FIO2 80%.W/ GIL PICC LINE INTACT GOOD BLOOD RETURN TO BOTH PORTS INFUSING PRECEDEX AT 1 MCG/KG/HR, FENTANYL 1.5 MCG/KG/HR AND VERSED AT 3 MG/HR.W/NGT TO LT NARES INTACT. ON CONTINUOUS FEEDING GLUCERNA 1.2 AT 60 ML/HR W/ WATER FLUSH ORDERED .W/ARMENTA CATHETER DRAINING ADEQUATE AMT OF YELLOW URINE.W/ RECTAL TUBE ALREADY IN PLACE,SMALL AMT OF BROWNISH LIQUID STOOL NOTED.W/GENERALIZED WEAKNESS TO ALL EXTREMITIES.FLACC 0. SAFETY PRECAUTIONS IN PLACE. WILL CONTINUE TO MONITOR.
[2021-04-11] MEDS: METOPROLOL 25 MG TAB NG SCH ×2 (09:01→20:45)
[2021-04-11] MEDS: ENOXAPARIN 100 MG/ML SYR SUBQ SCH ×2 (09:01→20:51)
[2021-04-11] MEDS: DEXAMETHASONE 10 MG/ML VIAL IVP SCH (09:01)
[2021-04-11] MEDS: INSULIN LANTUS 100 UNITS/ML 10 ML VIAL SUBQ SCH (09:01)
[2021-04-11] MEDS: PANTOPRAZOLE 40 MG INJ VIAL IVP SCH (09:01)
[2021-04-11] MEDS: DOCUSATE 100 MG/10 ML UDC GT SCH (09:01)
--- NOTE | 2021-04-11 09:05 | NUR ---
ALL SCHEDULED MEDS GIVEN. PT IS STABLE. NO DISTRESS NOTED. WILL CONTINUE TO MONITOR.
--- NOTE | 2021-04-11 11:10 | NUR ---
POTENTIAL COVID RELATED SKIN FAILURE DUE TO TISSUE LESS TOLERATE TO PRESSURE, SHEARING AND POSSIBLE ASSOCIATED WITH MICROVASCULAR INJURY AND HYPOXIA HERPETOLOGIST RELATED SKIN ALTERATION TO LEFT CHEEK FROM ETT HERNANDEZ PARTIAL THICKNESS SKIN LOSS 1.5X2.5X0.1CM WOUND BED, MOIST. PINK, WOUND EDGE DRY SCABS FORMING, NO ODOR. RECOMMENDATIONS: -CLEANSE LEFT CHEEK WITH NS, PAT DRY, APPLY VERSATEL DRESSING CHANGE PRN IF SOILING, PLEASE HAVE RT TO ASSIST HOLDING ETT HERNANDEZ WHEN APPLY DRESSING -TURN AND REPOSITION PATIENT Q 2H -INSPECT SKIN UNDER AND AROUND MEDICAL DEVICES. -ASSESS AND MONITOR SKIN CONDITION DURING POSITION CHANGE -OFFLOAD BILATERAL HEELS BY PLACING PILLOWS UNDER CALVES AT ALL TIMES, UNLESS OTHERWISE CONTRAINDICATED -APPLY HEEL PROTECTORS -PRESSURE REDISTRIBUTION SURFACE AND OFFLOADING SACRALCOCCYX -MANAGE MOISTURE, FRICTION AND SHEAR BY KEEP SKIN CLEAN AND DRY. -MANAGE FRICTION AND SHEAR BY USING LIFT SHEET TO REPOSITION PATIENT -HOB 30 DEGREE TOLERATE -PLEASE FOLLOW RD RECOMMENDATIONS PLEASE NOTIFIED WOUND CARE NURSE FOR ANY CHANGE OF SKIN CONDITION
--- NOTE | 2021-04-11 12:18 | NUR ---
04/11/21 RD FOLLOW UP COMPLETED PLEASE REFER TO NUTRITION ASSESSMENT UNDER CARE ACTIVITY FOR ESTIMATED NUTRITIONAL NEEDS. 1. CONTINUE GLUCERNA 1.2 @ 60 ML/HR TOLERATED D/T PT BACK ON 24 HR CONTINUOUS FEEDING -FWF: 200 ML Q4H OR PER MD -PROVIDES 1728 KCAL AND 86 GM PROTEIN, MEETING 92% EST KCAL NEEDS AND 100% EST PROTEIN NEEDS 2. IF PT WILL BE ON TUBE FEEDING FOR 12 HOURS, RECOMMEND GLUCERNA 1.2 AT 100 ML/HR X 12 HOURS -THIS WILL PROVIDE 1440 KCAL AND 72 GM OF PROTEIN, ADEQUATE TO MEET >75% OF ESTIMATED KCAL AND PROTEIN NEEDS 3. DISCONTINUE MICHAEL BID PER PROTOCOL 4. MONITOR GI SYMPTOMS AND GASTRIC RESIDUALS 5. RD TO FOLLOW-UP 3-5 DAYS, MODERATE RISK GAYATHRI ARAYA RD
[2021-04-11] MEDS ORDERED: NON ADHERENT DRESSING TP SCH (13:00)
[2021-04-11] MEDS: NACL 0.9% 1,000 ML IV SCH (13:03)
[2021-04-11] MEDS: ACETAMINOPHEN 325 MG TAB PO PRN ×2 (13:08→22:41)
--- NOTE | 2021-04-11 13:09 | NUR ---
ELEVATED TEMP OF 100.7. ADMINISTERED TYLENOL PRN PER MD ORDERED.
--- NOTE | 2021-04-11 15:10 | NUR ---
DR. TROTTER AT BEDSIDE.
[2021-04-11] MEDS: fentaNYL citrate - 50mL vial 2.5 MG in NACL 0.9% 200 ML IV PRN (16:43)
--- NOTE | 2021-04-11 19:28 | NUR ---
ENDORSED TO PET TECHNOLOGIST NURSE FOR CONTINUITY OF CARE. PT IS STABLE.
--- NOTE | 2021-04-11 21:38 | NUR ---
PATIENT STABLE VITALS SIGNS IN NORMAL LIMITS SOURAV SEDATED SR 78 NOT SIGNS OF PAIN ORAL CARE WAS PROVIDED PATIENT IS ABLE TO TRACK REPOSITION TO THE RIGHT SIDE//DiCaprio RN
[2021-04-12] VITALS (18 sets, daily range): BP systolic 95–128; BP diastolic 47–64
[2021-04-12] MEDS: BLOOD GLUCOSE MONITORING 1 DEV DEV FS SCH ×3 (00:43→13:00)
[2021-04-12] MEDS: PIPERACILLIN/TAZOBACTAM 3.375 GM in DEXTROSE 5% 50 ML IV SCH ×3 (00:45→12:00)
[2021-04-12] MEDS: MIDAZOLAM MDV 100 MG in NACL 0.9% 80 ML IV PRN (00:51)
[2021-04-12] MEDS: ALBUTEROL SULFATE/IPRATROPIU 3 ML SOL IH SCH ×3 (01:02→13:35)
[2021-04-12] MEDS: ACETAMINOPHEN 325 MG TAB PO PRN ×3 (04:35→14:35)
--- NOTE | 2021-04-12 05:00 | NUR ---
PATIENT STABLE VITALS SIGNS IN NORMAL LIMITS SLEEPING SEDATION IS ON ST130 I GAVE TYLENOL AFTER I GAVE HIS BATH BECAUSE SEEN LIKE HAVE SOME PAIN ALSO ORAL CARE WAS GAVE //Breana SZYMANSKI
--- NOTE | 2021-04-12 05:49 | NUR ---
PATIENT ALERT AT THIS TIME VITALS SIGNS IN NORMAL LIMITS SPO2 91 NOW RESPIRATORY GAVE HIS BREATHING TREATMENT . ST ON THE MONITOR NOT SIGNS OF PAIN AT THIS TIME//Breana SZYMANSKI
[2021-04-12 06:32] LABS: BASOPHILS % (AUTO) 0.2 % (0.0-2.0); EOSINOPHILS % (AUTO) 0.2 % (0.0-4.0); HEMATOCRIT 30.5 % (36-52); HEMOGLOBIN 9.7 g/dL (12.0-18.0); LYMPHOCYTES # (AUTO) 0.7 K/uL (2.0-11.5); LYMPHOCYTES % (AUTO) 3.2 % (20.5-51.1); MEAN CORPUSCULAR HEMOGLOBIN 30 pg (27-31); MEAN CORPUSCULAR HGB CONC 32 g/dL (33-37); MEAN CORPUSCULAR VOLUME 93.2 fL (80-94); MONOCYTES # (AUTO) 0.3 K/uL (0.8-1.0); MONOCYTES % (AUTO) 1.5 % (1.7-9.3); NEUTROPHILS # (AUTO) 20.9 K/uL (1.8-7.7); NEUTROPHILS % (AUTO) 94.9 % (42.2-75.2); PLATELET COUNT (AUTO) 426 K/uL (140-450); RED BLOOD CELL COUNT(AUTO) 3.27 MIL/uL (4.20-6.10); RED CELL DISTRIBUTION WIDTH 14.7 % (11.6-13.7)
[2021-04-12 07:02] LABS: ALBUMIN 1.4 g/dL (3.4-5.0); ANION GAP 8.9 (8-16); CARBON DIOXIDE 36.7 mmol/L (21-32); CREATININE 1.1 mg/dL (0.6-1.3); POTASSIUM 5.6 mmol/L (3.5-5.1); TOTAL BILIRUBIN 0.4 mg/dL (0.0-1.0)
--- NOTE | 2021-04-12 07:30 | NUR ---
REPORT RECEIVED FROM CERAMIC TILE INSTALLER RN.
--- NOTE | 2021-04-12 08:30 | NUR ---
PATIENT SEDATION. DOES NOT FOLLOW COMMANDS. TEMP 101.4, TYLENOL 650MG GIVEN. HEART SOUNDS REGULAR ST. ETT TO VENT APRV FIO2 100% SAO2 95%. ANTERIOR LATERAL BREATH SOUNDS WITH CRACKLES ON THE LEFT AND SIGNIFICANTLY DIMINISHED ON THE RIGHT. NGT IN PLACE WITH ACTIVE BOWEL SOUNDS. TF GLUCERNA AT 60CC/HR. NO RISIDUAL. RECTAL BAG IN PLACE WITH LIQUID BROWN STOOLS. ARMENTA IN PLACE WITH YELLOW URINE. GIL PICC LINE IN PLACE. PRECEDEX AT 1MCG/KG/HR, VERSED AT 3MG/HR DECREASED TO 2MG/HR, FENTANYL AT 1.5MCG/KG/HR, NS AT 20ML/HR.
[2021-04-12] MEDS: DOCUSATE 100 MG/10 ML UDC GT SCH (09:00)
[2021-04-12] MEDS: INSULIN LANTUS 100 UNITS/ML 10 ML VIAL SUBQ SCH (09:00)
[2021-04-12] MEDS: METOPROLOL 25 MG TAB NG SCH (09:02)
[2021-04-12] MEDS: PANTOPRAZOLE 40 MG INJ VIAL IVP SCH (09:02)
[2021-04-12] MEDS: DEXAMETHASONE 10 MG/ML VIAL IVP SCH (09:02)
[2021-04-12] MEDS: ENOXAPARIN 100 MG/ML SYR SUBQ SCH (09:05)
[2021-04-12] MEDS ORDERED: SODIUM ZIRCONIUM CYCLOSILICATE 10 GM POWD.PACK NG SCH (11:05)
[2021-04-12] MEDS: INSULIN LISPRO SLIDING SCALE 100 UNITS/ML VIAL SUBQ PRN (14:22)
--- NOTE | 2021-04-12 14:30 | NUR ---
TEMP UP TO 102.8 TYLENOL 650MG GIVEN PER NG. ON COOLING BLANKET. ICE PACKS TO ARMPITS. PRECEDEX DECREASED TO .7MCG/KG/HR.
--- NOTE | 2021-04-12 15:30 | NUR ---
RT CHANGED MITA TO AC/VC FIO2 100/VT 450/RATE 16/PEEP 12.
--- NOTE | 2021-04-12 15:50 | NUR ---
CALLED TO ICU FOR PT DESATURATION. PT DID NOT TOLERATED A/C VC MODE, ABOUT 30MIN. PT RETURNED TO APRV MODE. NURSE AWARE.
--- NOTE | 2021-04-12 15:50 | NUR ---
SAO2 78-81% RT CALLED TO EVALUATE.
--- NOTE | 2021-04-12 15:55 | NUR ---
TALKED WITH RT AND CHANGED PATIENT BACK TO APRV 100%.
--- NOTE | 2021-04-12 17:00 | NUR ---
IDENTIFIED ASYSTOLE ON THE MONITOR. WENT TO ROOM AND PATIENT WAS ASHEN IN COLOR, NO RESPIRATIONS, NO PULSE. CODE BLUE CALLED. CPR STARTED. PATIENT REMOVED FROM VENT AND BAGGING WAS INITIATED. 3 DOSES OF EPI GIVEN WITHOUT RESPONSE. NO PULSE OR RHYTHM NOTED. BICARB GIVEN. DR. MUÑOZ ENDED CODE. CALLED AND ON HER WAY. CORONOR NOTIFIED AND BODY RELEASED AT 1735 BY RAFAEL ARRIOLA. [facility] NOTIFIED .
--- NOTE | 2021-04-12 17:30 | NUR ---
DR. TROTTER NOTIFIED OF CODE BLUE AND PATIENT .
--- NOTE | 2021-04-12 19:00 | NUR ---
AT BEDSIDE. NO HOME IDENTIFIED AT THIS TIME.
== END 2021-04-13 00:24 | DRG 870 ==
LOC: MED 11:35 → MTU 17:29 → MIC 03-24 10:40
PROVIDERS: ADMIT Internal Medicine; ATTEND Internal Medicine
PROC: 5A1955Z Respiratory Ventilation, Greater than 96 Consecutive Hours (ICD-10-PCS; 2021-03-24)
PROC: 0BH17EZ Insertion of Endotracheal Airway into Trachea, Via Natural or Artificial Opening (ICD-10-PCS; 2021-03-24)
PROC: 5A09357 Assistance with Respiratory Ventilation, Less than 24 Consecutive Hours, Continuous Positive Airway Pressure (ICD-10-PCS; 2021-03-24)
PROC: XW033E5 Introduction of Remdesivir Anti-infective into Peripheral Vein, Percutaneous Approach, New Technology Group 5 (ICD-10-PCS; 2021-03-25)
PROC: 5A12012 Performance of Cardiac Output, Single, Manual (ICD-10-PCS; principal; 2021-04-12)
DX: A41.9 Sepsis, unspecified organism (principal); U07.1 COVID-19; J12.82 Pneumonia due to coronavirus disease 2019; J80 Acute respiratory distress syndrome; E87.1 Hypo-osmolality and hyponatremia; D68.59 Other primary thrombophilia; N17.9 Acute kidney failure, unspecified; I82.501 Chronic embolism and thrombosis of unspecified deep veins of right lower extremity; I47.1 Supraventricular tachycardia; R13.10 Dysphagia, unspecified; E66.01 Morbid (severe) obesity due to excess calories; E11.9 Type 2 diabetes mellitus without complications; E88.09 Other disorders of plasma-protein metabolism, not elsewhere classified; I45.5 Other specified heart block; Z87.891 Personal history of nicotine dependence; Z68.35 Body mass index [BMI] 35.0-35.9, adult; Z79.01 Long term (current) use of anticoagulants
CPT/HCPCS: 31500; 36415; 36600; 71045; 80048; 80053; 80202; 81001; 82803; 82948; 83036; 83735; 83880; 84100; 84484; 85025; 85379; 85610; 85730; 87040; 87070; 87086; 87186; 87205; 92950; 93005; 93970; 94003; 94640; 99285; C9113; J0456; J0696; J1100; J1650; J1815; J1940; J1956; J2250; J2270; J2405; J2543; J2704; J3010; J3370; J3490; J7030; J7060; Q0092; U0003